=== PATIENT | male | born 1930 | race Caucasian/White ===

== ENCOUNTER → 2016-10-27 | Outpatient (CLI) | payer OTHER ==
[~2016-10-27] MED LIST: B-COTAB18 PO; CHOL100010 PO; FOLI1TAB7 PO; LEVO75TA5 PO; PRLSR20 PO; RAMI10CA PO; SIMV20TA2 PO; TAMS0.4C38 PO
--- NOTE | 2016-10-27 10:30 | DIAGNOSTIC IMAGING REPORT ---
CHEST 2 VIEWS ROUTINE CLINICAL HISTORY: Community-acquired pneumonia. Follow-up study. COMPARISON STUDY: Chest radiograph September 24, 2016. FINDINGS: Lung volumes are at the upper limits of normal. There is no pneumothorax or pleural effusion. There is no evidence of pulmonary edema. No consolidation is identified. Right basilar opacity shown on exam of September 24, 2016 has resolved. There is no evidence of pulmonary edema. IMPRESSION: No acute cardiopulmonary findings. Resolution of right basilar opacity shown on exam of September 24, 2016. Electronically signed by: Baron Thacker M.D. 10/27/2016 10:28 AM Dictated Date/Time: 10/27/2016 10:27 AM
== END | disposition home or self-care (01) ==
LOC: C.RAD 09:59
PROVIDERS: ATTEND Nurse Practitioner
DX: J18.9 Pneumonia, unspecified organism (principal)

== ENCOUNTER → 2017-03-19 | Outpatient (CLI) | payer OTHER ==
[2017-03-19 17:29] LABS: BASO % 0.5 %; BASO ABS # 0.04 K/uL (0-0.2); COMPLETE YES; HEMATOCRIT 41.6 % (42-52); IG% 0.2 %; LYMPH ABS # 2.89 K/uL (1.2-3.4); MEAN CELL VOLUME 92.7 fL (80-100); MEAN CORPUSCULAR HEMOGLOBIN 29.4 pg (25-34); MEAN CORPUSCULAR HGB CONC 31.7 g/dl (32-36); MEAN PLATELET VOLUME 11.3 fL (7.4-10.4); MONO % 9.5 %; NEUT % 53.8 %; PLATELET COUNT 154 K/uL (130-400); RED BLOOD COUNT 4.49 M/uL (4.7-6.1); WHITE BLOOD COUNT 8.25 K/uL (4.8-10.8)
[2017-03-19 17:50] LABS: ALKALINE PHOSPHATASE 66 U/L (45-117); ALT/SGPT 23 U/L (12-78); AST/SGOT 18 U/L (15-37); BLOOD UREA NITROGEN 16 mg/dl (7-18); BUN/CREATININE RATIO 13.6 (10-20); CALCIUM 8.8 mg/dl (8.5-10.1); CARBON DIOXIDE 29 mmol/L (21-32); CHLORIDE 108 mmol/L (98-107); CHOLESTEROL 162 mg/dl (0-200); GLUCOSE 113 mg/dl (70-99); POTASSIUM 4.2 mmol/L (3.5-5.1); SODIUM 145 mmol/L (136-145)
[2017-03-19 17:56] LABS: URINE APPEARANCE CLEAR (CLEAR); URINE BILIRUBIN NEG (NEG); URINE COLOR YELLOW; URINE EPITHELIAL CELL AUTO 20-30 /lpf (0-5); URINE NITRITE NEG (NEG); URINE SPECIFIC GRAVITY 1.024 (1.000-1.030); UROBILINOGEN NEG (NEG); ZZUR CULT IF INDIC CLEAN CATCH NO
[2017-03-19 18:01] LABS: ALB/GLOB RATIO 0.9 (0.9-2); CHOLESTEROL/HDL RATIO 2.8; HDL CHOLESTEROL 57 mg/dl; LDL CHOLESTEROL CALCULATED 80 mg/dl; THYROID STIMULATING HORMONE 0.891 uIu/ml (0.300-4.500); TRIGLYCERIDES 126 mg/dl (0-150); VERY LOW DENSITY LIPOPROT CALC 25 mg/dl
[2017-03-19 18:01] LABS: MANUAL MICROSCOPIC REQUIRED? NO; REVIEW REQ? NO
[2017-03-20 06:43] LABS: ESTIMATED AVERAGE GLUCOSE 128 mg/dl; HA1C FLAG Normal (Normal)
--- NOTE | 2017-03-25 13:31 | CODING QUERY MEDICAL NECESSITY ---
SUPPORTING DIAGNOSIS NEEDED A supporting diagnosis is required for the test/procedure performed on this patient in order for us to be reimbursed by the patient's insurance. Please provide a supporting diagnosis for the following test/procedure listed below next to the test name along with your signature. *If there is no additional diagnosis for this patient that would support the following test/procedure please document that below next to the test/procedure. Test(s)/Procedure(s) that require a supporting diagnosis: * HEMOGLOBIN A1C DIAGNOSIS: Provider Signature: Date: Thank you Mitzy Brannon [facility] [employer] Once completed, please kindly fax back to [phone] For questions please call [phone]
== END | disposition home or self-care (01) ==
LOC: C.LABBFT 17:15
PROVIDERS: ATTEND Internal Medicine
DX: I10 Essential (primary) hypertension (principal); E03.9 Hypothyroidism, unspecified; C61 Malignant neoplasm of prostate; R73.03 Prediabetes; E55.9 Vitamin D deficiency, unspecified; E78.5 Hyperlipidemia, unspecified

== ENCOUNTER → 2017-10-12 | Outpatient (CLI) | payer OTHER ==
[~2017-10-12] MED LIST changes: -FOLI1TAB7 PO; +FOLI1TAB8 PO
[2017-10-12 18:08] LABS: BASO % 0.4 %; BASO ABS # 0.04 K/uL (0-0.2); EOS ABS # 0.09 K/uL (0-0.5); HEMATOCRIT 42.7 % (42-52); HEMOGLOBIN 13.9 g/dL (14.0-18.0); IG# 0.02 K/uL (0.00-0.02); LYMPH % 25.2 %; LYMPH ABS # 2.36 K/uL (1.2-3.4); MEAN CELL VOLUME 94.7 fL (80-100); MEAN CORPUSCULAR HEMOGLOBIN 30.8 pg (25-34); MEAN CORPUSCULAR HGB CONC 32.6 g/dl (32-36); MEAN PLATELET VOLUME 11.7 fL (7.4-10.4); MONO % 7.4 %; MONO ABS # 0.69 K/uL (0.11-0.59); NEUT % 65.8 %; NEUT ABS # 6.15 K/uL (1.4-6.5); PLATELET COUNT 164 K/uL (130-400); RED CELL DISTRIBUTION WIDTH CV 14.3 % (11.5-14.5); RED CELL DISTRIBUTION WIDTH SD 48.9 fL (36.4-46.3); WHITE BLOOD COUNT 9.35 K/uL (4.8-10.8)
[2017-10-12 18:28] LABS: BLOOD UREA NITROGEN 19 mg/dl (7-18); CALCIUM 9.4 mg/dl (8.5-10.1); CARBON DIOXIDE 29 mmol/L (21-32); CREATININE 1.04 mg/dl (0.60-1.40); GLUCOSE 125 mg/dl (70-99); POTASSIUM 4.4 mmol/L (3.5-5.1); SODIUM 143 mmol/L (136-145)
[2017-10-12 18:42] LABS: HEMOGLOBIN A1C 6.1 % (4.5-5.6)
== END | disposition home or self-care (01) ==
LOC: C.LABBFT 14:14
PROVIDERS: ATTEND Internal Medicine
DX: R73.03 Prediabetes (principal); E03.9 Hypothyroidism, unspecified; D64.9 Anemia, unspecified; I10 Essential (primary) hypertension

== ENCOUNTER 2019-11-20 18:03 | Inpatient (IN) ==
[2019-11-20] MEDS ORDERED: FAMOTIDINE 20MG IV PUSH 20 MG/5 ML SYR IV STA (18:18)
[2019-11-20] MEDS ORDERED: ONDANSETRON INJ 2 MG/ML 2 ML VIAL IV STA (18:18)
[2019-11-20] MEDS ORDERED: PANTOprazole 80 MG in DEXTROSE 5% 100 ML IV STA (18:23)
--- NOTE | 2019-11-20 18:28 | Emergency Department Note ---
Entered by Margarita Browne acting as a scribe for Sincere Sanchez MD History of Present Illness General Chief complaint: GI Bleed Time Seen by Provider: 11/20/19 18:05 Source: patient and EMS Mode of arrival: EMS Limitations: altered mental status History of Present Illness Onset (ago): day(s) 2 Location: abdomen Associated symptoms: + other (hematemesis "coffee ground colored", rectal bleeding, melena) The patient is an 88 year old male with a history of prostate cancer, GI bleed, stroke, and NSTEMI who presents to the Emergency Room for a possible GI bleed. EMS states that he has been experiencing hematemesis, rectal bleeding, and melena for the past 2 days. EMS reports coffee ground colored dried blood near the patient's teeth and mouth. They state they are unsure if the patient is on blood thinners and present concern today for a possible GI bleed. Of note, EMS also includes that the patient is confused at baseline and is a DNR. Additionally, he had a low BP when EMS arrived, however this has now resolved. He also was recently on Bactrim for a UTI but has since finished this medication. HPI is limited and is per EMS due to the patient's AMS Home Medications Home Medications Medication Instructions Recorded Confirmed Type cholecalciferol (vitamin D3) 1,000 units PO QAM 07/26/18 11/20/19 History [Vitamin D3] folic acid 1 mg PO QAM 07/26/18 11/20/19 History levothyroxine 75 mcg PO DAILYBB 07/26/18 11/20/19 History simvastatin 20 mg PO HS 07/26/18 11/20/19 History tamsulosin 0.4 mg PO QPM 07/26/18 11/20/19 History polyvinyl alcohol [Artificial 2 drp OPB QID 04/02/19 11/20/19 History Tears (polyvin alc)] acetaminophen 500 mg tablet 500 mg PO Q4H PRN #30 tab 04/21/19 11/20/19 Rx famotidine 20 mg PO HS 11/20/19 11/20/19 History ferrous sulfate 325 mg PO BID17 11/20/19 11/20/19 History food supplemt, lactose-reduced 1 ea PO BIDM 11/20/19 11/20/19 History [Boost] loratadine [Claritin] 10 mg PO HS 11/20/19 11/20/19 History thiamine HCl (vitamin B1) [Vitamin 100 mg PO BIDM 11/20/19 11/20/19 History B-1] Allergies Allergy/AdvReac Type Severity Reaction Status Date / Time Penicillins Allergy Intermediate Hives Verified 11/20/19 18:39 Past Med/Surg History Medical History Anemia (Acute) CAD (coronary artery disease) (Chronic) CHF (congestive heart failure) (Chronic) Cystitis (Chronic) Diverticulitis (Resolved) DVT (deep venous thrombosis) (Chronic ~02/16/14) Encephalopathy (Resolved) Hematuria, gross (Acute) HTN (hypertension) (Chronic) Hyperlipidemia (Acute) Hypertension (Acute) Hypothyroid (Chronic) NSTEMI (non-ST elevated myocardial infarction) (Resolved) Pneumonia (Resolved) Pressure ulcer (Acute) Prostate CA (Resolved) Prostate cancer (Resolved ~10/1983) Rhabdomyolysis (Resolved) SDH (subdural hematoma) TIA (transient ischemic attack) (Resolved) Urinary tract infection (Resolved) Surgical History S/P hernia repair (Resolved) Social History Preferred Language: Irish Communication Ability: Unable Visual Impairment: Diminished Hearing Ability: Hard of Hearing Beliefs That Will Affect Care: None marital status: Current Living Situation: Alone Current Living Situation Comment: PREVIOUSLY LIVED ALONE, WENT TO [facility] current occupational status: retired 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 ROS is limited due to the patient's AMS Physical Exam Vital Signs Vital Signs - 24 hr 11/20/19 18:08 11/20/19 18:11 11/20/19 18:13 Temperature 36.7 C Temperature Source Oral Pulse Rate 71 81 77 Pulse Rate [Finger] Pulse Rate from SpO2 Sensor 73 80 Respiratory Rate 19 16 18 Respiratory Effort / Characteristics Non-Labored Respiratory Depth Normal Blood Pressure 117/72 117/72 Blood Pressure [Left Arm] Blood Pressure Mean 83 87 Blood Pressure Mean [Left Arm] Pulse Oximetry 96 98 99 Oxygen Delivery Method Room Air Sepsis Recent Fever Within 48 Hours No Sepsis New/Unexplained Change in Mental Status No Sepsis Action Taken by Nursing No Action Required 11/20/19 18:20 11/20/19 18:29 11/20/19 18:30 Temperature Temperature Source Pulse Rate 75 75 Pulse Rate [Finger] Pulse Rate from SpO2 Sensor Respiratory Rate 23 23 Respiratory Effort / Characteristics Respiratory Depth Blood Pressure Blood Pressure [Left Arm] Blood Pressure Mean Blood Pressure Mean [Left Arm] Pulse Oximetry 98 Oxygen Delivery Method Room Air Sepsis Recent Fever Within 48 Hours Sepsis New/Unexplained Change in Mental Status Sepsis Action Taken by Nursing 11/20/19 18:40 11/20/19 18:42 11/20/19 18:43 Temperature Temperature Source Pulse Rate 74 70 Pulse Rate [Finger] 72 Pulse Rate from SpO2 Sensor Respiratory Rate 20 16 16 Respiratory Effort / Characteristics Non-Labored Respiratory Depth Normal Blood Pressure 133/63 Blood Pressure [Left Arm] 133/63 Blood Pressure Mean 84 Blood Pressure Mean [Left Arm] 86 Pulse Oximetry 98 Oxygen Delivery Method Room Air Sepsis Recent Fever Within 48 Hours Sepsis New/Unexplained Change in Mental Status Sepsis Action Taken by Nursing 11/20/19 18:50 11/20/19 19:00 11/20/19 19:01 Temperature Temperature Source Pulse Rate 72 71 71 Pulse Rate [Finger] Pulse Rate from SpO2 Sensor Respiratory Rate 15 13 21 Respiratory Effort / Characteristics Respiratory Depth Blood Pressure 114/70 Blood Pressure [Left Arm] Blood Pressure Mean 83 Blood Pressure Mean [Left Arm] Pulse Oximetry Oxygen Delivery Method Sepsis Recent Fever Within 48 Hours Sepsis New/Unexplained Change in Mental Status Sepsis Action Taken by Nursing 11/20/19 19:10 11/20/19 19:20 11/20/19 19:30 Temperature Temperature Source Pulse Rate 67 70 67 Pulse Rate [Finger] Pulse Rate from SpO2 Sensor Respiratory Rate 12 18 23 Respiratory Effort / Characteristics Respiratory Depth Blood Pressure 112/61 Blood Pressure [Left Arm] Blood Pressure Mean 77 Blood Pressure Mean [Left Arm] Pulse Oximetry Oxygen Delivery Method Sepsis Recent Fever Within 48 Hours Sepsis New/Unexplained Change in Mental Status Sepsis Action Taken by Nursing 11/20/19 19:31 11/20/19 19:40 11/20/19 19:50 Temperature Temperature Source Pulse Rate 62 67 65 Pulse Rate [Finger] Pulse Rate from SpO2 Sensor 65 Respiratory Rate 17 17 18 Respiratory Effort / Characteristics Respiratory Depth Blood Pressure Blood Pressure [Left Arm] Blood Pressure Mean Blood Pressure Mean [Left Arm] Pulse Oximetry 99 Oxygen Delivery Method Sepsis Recent Fever Within 48 Hours Sepsis New/Unexplained Change in Mental Status Sepsis Action Taken by Nursing GENERAL: Patient is in no acute distress. HEENT: No acute trauma, normocephalic atraumatic, mucous membranes dry, no nasal congestion, no scleral icterus. Coffee ground material dried on chin. NECK: No stridor, no adenopathy, no meningismus, trachea is midline. LUNGS: Clear to auscultation bilaterally, no wheeze, no rhonchi, breath sounds equal. HEART: Irregular rhythm, no murmurs, normal rate. ABDOMEN: Soft, nontender, bowel sounds positive, no hernias, no peritonitis. EXTREMITIES: No cyanosis or edema, full range of motion of all the joints without pain or difficulty, no signs for acute trauma. NEUROLOGIC: Awake, slightly drowsy, no acute motor or sensory deficits, no focal weakness. SKIN: Seems pale, no jaundice, no diaphoresis. Petechial rash on lower extremities bilaterally. Some petechiae on dorsum of hands and a blotchy non- blanching rash on both palms. RECTAL: Dark stool, heme positive. Course Course 1809: Past medical records reviewed. The patient was evaluated in room B04B. A complete history and physical exam was performed. 1928: I spoke to Dr. Garcia, [facility] Hospitalist who will further evaluate the patient. 1942: I checked on the patient and there is no family present in the room yet. Administered Medications Pantoprazole Sodium 40 mg/ (Dextrose) 100 mls @ 20 mls/hr IV Q5H JAKE Stop: 11/20/19 23:59 Last Admin: 11/20/19 19:41 Dose: 20 mls/hr Documented by: [id number] Sodium Chloride (Nss 1000ml) 1,000 mls @ 999 mls/hr IV .Q1H1M JAKE Stop: 11/20/19 20:45 Last Admin: 11/20/19 19:45 Dose: Not Given Documented by: [id number] Discontinued Medications Sodium Chloride (Nss 1000ml) 1,000 mls @ 100 mls/hr IV .Q10H JAKE Stop: 11/21/19 04:29 Last Infusion: 11/20/19 19:45 Dose: 0 mls/hr Documented by: [id number] Admin: 11/20/19 18:32 Dose: 100 mls/hr Documented by: [id number] Famotidine (Pepcid 20mg Iv Push) 20 mg in 5 mls @ 2.5 mls/min IV NOW STA Stop: 11/20/19 18:19 Last Admin: 11/20/19 18:36 Dose: 2.5 mls/min Documented by: [id number] Pantoprazole Sodium 80 mg/ (Dextrose) 120 mls @ 480 mls/hr IV NOW STA Stop: 11/20/19 18:37 Last Infusion: 11/20/19 19:41 Dose: 0 mls/hr Documented by: [id number] Admin: 11/20/19 19:12 Dose: 480 mls/hr Documented by: [id number] Ondansetron HCl (Zofran) 4 mg IV ONE STA Stop: 11/20/19 18:19 Last Admin: 11/20/19 18:36 Dose: 4 mg Documented by: [id number] Medical Decision Making Differential Diagnosis Differential diagnosis includes but is not limited to upper GI bleed, ulcer, lower GI bleed, anemia, dehydration, electrolyte imbalance, renal or liver failure, coagulopathy, low platelet count. Medical Records Attestation: I reviewed the patient's medical records. Home Medications Current Medication List: was personally reviewed by me Laboratory Data Attestation: I reviewed the patient's lab results. Result diagrams: 11/20/19 18:22 11/20/19 18:22 Lab Results 11/20/19 11/20/19 11/20/19 Range/Units 18:22 18:22 18:22 WBC 12.91 H (4.8-10.8) K/uL RBC 3.99 L (4.7-6.1) M/uL Hgb 11.5 L (14.0-18.0) g/dL Hct 36.3 L (42-52) % MCV 91.0 (80-100) fL MCH 28.8 (25-34) pg MCHC 31.7 L (32-36) g/dL RDW Std Deviation 53.6 H (36.4-46.3) fL RDW Coeff of Maite 16.3 H (11.5-14.5) % Plt Count 176 (130-400) K/uL MPV 11.2 H (7.4-10.4) fL Immature Gran % (Auto) 0.6 % Neut % (Auto) 82.6 % Lymph % (Auto) 10.6 % [place] % (Auto) 6.1 % Eos % (Auto) 0.0 % Baso % (Auto) 0.1 % Immature Gran # (Auto) 0.08 H (0.00-0.02) K/uL Neut # (Auto) 10.66 H (1.4-6.5) K/uL Lymph # (Auto) 1.37 (1.2-3.4) K/uL [place] # (Auto) 0.79 H (0.11-0.59) K/uL Eos # (Auto) 0.00 (0-0.5) K/uL Baso # (Auto) 0.01 (0-0.2) K/uL PT 14.0 H (9.0-12.0) Seconds INR 1.4 H (0.9-1.1) APTT 24.0 (21.0-31.0) Seconds PTT Ratio 0.9 Sodium (136-145) mmol/L Potassium (3.5-5.1) mmol/L Chloride (98-107) mmol/L Carbon Dioxide (21-32) mmol/L Anion Gap (3-11) BUN (7-18) mg/dl Creatinine (0.6-1.4) mg/dl Est Cr Clr Drug Dosing Est GFR ( Amer) Est GFR (Non-Af Amer) BUN/Creatinine Ratio (10-20) Glucose (70-99) mg/dl Calcium (8.5-10.1) mg/dl Magnesium (1.8-2.4) mg/dl Total Bilirubin (0.2-1) mg/dl AST (15-37) U/L ALT (12-78) U/L Alkaline Phosphatase (45-117) U/L Troponin I (0-0.045) ng/ml Total Protein (6.4-8.2) gm/dl Albumin (3.4-5.0) gm/dl Globulin (2.5-4.0) gm/dl Albumin/Globulin Ratio (0.9-2) Lipase (73-393) U/L Specimen Hemolysis Blood Type B Positive Antibody Screen NEGATIVE 11/20/19 Range/Units 18:22 WBC (4.8-10.8) K/uL RBC (4.7-6.1) M/uL Hgb (14.0-18.0) g/dL Hct (42-52) % MCV (80-100) fL MCH (25-34) pg MCHC (32-36) g/dL RDW Std Deviation (36.4-46.3) fL RDW Coeff of Maite (11.5-14.5) % Plt Count (130-400) K/uL MPV (7.4-10.4) fL Immature Gran % (Auto) % Neut % (Auto) % Lymph % (Auto) % [place] % (Auto) % Eos % (Auto) % Baso % (Auto) % Immature Gran # (Auto) (0.00-0.02) K/uL Neut # (Auto) (1.4-6.5) K/uL Lymph # (Auto) (1.2-3.4) K/uL [place] # (Auto) (0.11-0.59) K/uL Eos # (Auto) (0-0.5) K/uL Baso # (Auto) (0-0.2) K/uL PT (9.0-12.0) Seconds INR (0.9-1.1) APTT (21.0-31.0) Seconds PTT Ratio Sodium 137 (136-145) mmol/L Potassium 3.8 (3.5-5.1) mmol/L Chloride 102 (98-107) mmol/L Carbon Dioxide 27 (21-32) mmol/L Anion Gap 8.0 (3-11) BUN 32 H (7-18) mg/dl Creatinine 2.11 H (0.6-1.4) mg/dl Est Cr Clr Drug Dosing Not Reportable Est GFR ( Amer) 31.7 Est GFR (Non-Af Amer) 27.3 BUN/Creatinine Ratio 15.1 (10-20) Glucose 143 H (70-99) mg/dl Calcium 8.6 (8.5-10.1) mg/dl Magnesium 1.8 (1.8-2.4) mg/dl Total Bilirubin 0.8 (0.2-1) mg/dl AST 24 (15-37) U/L ALT 20 (12-78) U/L Alkaline Phosphatase 135 H (45-117) U/L Troponin I < 0.015 (0-0.045) ng/ml Total Protein 8.3 H (6.4-8.2) gm/dl Albumin 1.9 L (3.4-5.0) gm/dl Globulin 6.4 H (2.5-4.0) gm/dl Albumin/Globulin Ratio 0.3 L (0.9-2) Lipase 41 L (73-393) U/L Specimen Hemolysis Blood Type Antibody Screen Imaging Data Radiologist's Impression: Radiology results as stated below per my review and the radiologist's interpretation: SINGLE VIEW CHEST CLINICAL HISTORY: Generalized weakness. FINDINGS: 2 AP, portable, upright chest radiographs are compared to performed earlier the same day 08/03/2018 and correlated with chest CT dated 07/26/2018. The examination is degraded by portable technique and patient rotation. The heart is mildly enlarged and there is atherosclerotic calcification of the thoracic aorta. The pulmonary vasculature is noncongested. There is a small right pleural effusion with associated atelectasis. The left lung appears clear. No pneumothorax is seen. The skeletal structures are osteopenic. The bony thorax is grossly intact. Advanced arthritic change is noted in the shoulders. There are healed left-sided rib fractures. IMPRESSION: 1. Mild cardiac enlargement without radiographic evidence of congestive failure. 2. Trace right pleural effusion. Electronically signed by: Sincere Jean M.D. 11/20/2019 6:58 PM ECG Data Attestation: I personally reviewed and interpreted this ECG as follows: Indication: + other (GI bleed) Rate (beats per minute): 71 Rhythm: + sinus rhythm ECG ST segments: no ST elevation ECG Findings: + PACs and + Other (QT-c is 436) Blood Pressure Blood Pressure Findings: Normal blood pressure Blood Pressure Disposition: further management by hospitalist [facility] Narrative There is a mild leukocytosis, this certainly could be consistent with infection or just the stress of his situation. There was an anemia present with a hemoglobin of 11.5, however, this value is higher than some recent baseline testing. There was a normal platelet count. INR was 1.4, mildly elevated. There was evidence for acute kidney injury with a creatinine of 2.11. Alk phos somewhat elevated, the albumin was low. No evidence for pancreatitis. Chest film does not show pneumonia or CHF. EKG shows a sinus rhythm, no acute ischemic change. Cardiac enzyme testing x1 is not consistent with acute cardiac injury. On my exam, the patient appeared quite dehydrated. He did have a dark, heme positive stool. The patient was reportedly hypotensive at the senior care, however, here, his blood pressure is adequate. The patient was given IV saline, 1 L. He was given a bolus of Protonix and placed on a Protonix drip. He received IV Zofran and IV Pepcid. Patient is not in need of any emergent transfusion in the ED. He does need hospitalization though. His hemoglobin will need to be followed. He may require an endoscopy. I did speak to the patient and case management. The on- call hospitalist has been consulted. Patient has done well with his IV fluid hydration. His blood pressure is adequate, his pulse is adequate. Continuous Cardiac Monitoring: An order was placed for continuous cardiac monitoring. The monitor shows a rate of 76 with sinus rhythm and PACs. Impression & Plan Upper gastrointestinal bleed, Anemia, Dehydration, Hematemesis, MAITE (acute kidney injury), Heme positive stool Discharge Plan Visit Data Chief Complaint: GI Bleed ED Provider: Sincere Sanchez Discharge Problem: Upper gastrointestinal bleed, Anemia, Dehydration, Hematemesis, MAITE (acute kidney injury), Heme positive stool Patient Disposition: Being Evaluated by Hospitalist Forms Stand Alone Forms: My [facility] Prescriptions Prescriptions: No Action acetaminophen [Acetaminophen Extra Strength] 500 mg tablet 500 mg PO Q4H PRN (Reason: Pain) Qty: 30 RF: 0 levothyroxine 75 mcg tablet 75 mcg PO DAILYBB RF: 0 tamsulosin 0.4 mg capsule 0.4 mg PO QPM RF: 0 simvastatin 20 mg tablet 20 mg PO HS RF: 0 folic acid 1 mg Tablet 1 mg PO QAM RF: 0 cholecalciferol (vitamin D3) [Vitamin D3] 1,000 unit Tablet 1,000 units PO QAM RF: 0 famotidine 20 mg Tablet 20 mg PO HS RF: 0 loratadine [Claritin] 10 mg Tablet 10 mg PO HS RF: 0 Boost 0.04 gram- 1 kcal/mL Liquid 1 ea PO BIDM RF: 0 thiamine HCl (vitamin B1) [Vitamin B-1] 100 mg tablet 100 mg PO BIDM RF: 0 ferrous sulfate 325 mg (65 mg iron) tablet,delayed release (DR/EC) 325 mg PO BID17 RF: 0 polyvinyl alcohol [Artificial Tears (polyvin alc)] 1.4 % Drops 2 drp OPB QID RF: 0 Referrals Referrals: Laine Corado Worley [Primary Care Provider] - Discharge Problem: Anemia Qualifiers: Anemia type: unspecified type Qualified Code(s): D64.9 - Anemia, unspecified Hematemesis Qualifiers: Nausea presence: unspecified Qualified Code(s): K92.0 - Hematemesis The scribe's documentation has been prepared under my direction and personally reviewed by me in its entirety. I confirm that the note above accurately reflects all work, treatment, procedures, and medical decision making performed by me.
[2019-11-20] MEDS ORDERED: SODIUM CHLORIDE 0.9% 1000ML 1,000 ML IV SCH ×2 (18:30→19:45)
[2019-11-20 18:38] LABS: Basophils # (auto) 0.01 K/uL (0-0.2); Basophils % (auto) 0.1 %; Hematocrit (blood only) 36.3 % (42-52); Hemoglobin 11.5 g/dL (14.0-18.0); Immature Granulocytes # (auto) 0.08 K/uL (0.00-0.02); Immature Granulocytes % (auto) 0.6 %; Lymphocytes # (auto) 1.37 K/uL (1.2-3.4); Lymphocytes % (auto) 10.6 %; Mean Corpuscular Hemoglobin 28.8 pg (25-34); Mean Corpuscular Hgb Conc 31.7 g/dL (32-36); Mean Platelet Volume 11.2 fL (7.4-10.4); Monocytes # (auto) 0.79 K/uL (0.11-0.59); Monocytes % (auto) 6.1 %; Neutrophils # (auto) 10.66 K/uL (1.4-6.5); Neutrophils % (auto) 82.6 %; Platelet Count 176 K/uL (130-400); RDW Coefficient of Variation 16.3 % (11.5-14.5); RDW Standard Deviation 53.6 fL (36.4-46.3); Red Blood Count 3.99 M/uL (4.7-6.1); White Blood Count 12.91 K/uL (4.8-10.8)
[2019-11-20 18:51] LABS: INR 1.4 (0.9-1.1); Partial Thromboplastin Ratio 0.9
--- NOTE | 2019-11-20 19:00 | XRay Report ---
SINGLE VIEW CHEST CLINICAL HISTORY: Generalized weakness. FINDINGS: 2 AP, portable, upright chest radiographs are compared to performed earlier the same day and correlated with chest CT dated 07/26/2018. The examination is degraded by portable techn ique and patient rotation. The heart is mildly enlarged and there is atherosclerotic calcification o f the thoracic aorta. The pulmonary vasculature is noncongested. There is a small right pleural effus ion with associated atelectasis. The left lung appears clear. No pneumothorax is seen. The skeletal s tructures are osteopenic. The bony thorax is grossly intact. Advanced arthritic change is noted in th e shoulders. There are healed left-sided rib fractures. IMPRESSION: 1. Mild cardiac enlargement without radiographic evidence of congestive failure. 2. Trace right pleural effusion. Electronically signed by: Sincere Jean M.D. 11/20/2019 6:58 PM
[2019-11-20 19:10] LABS: Alanine Aminotransferase 20 U/L (12-78); Albumin Globulin Ratio 0.3 (0.9-2); Albumin Level 1.9 gm/dl (3.4-5.0); Alkaline Phosphatase 135 U/L (45-117); Aspartate Aminotransferase 24 U/L (15-37); BUN Creatinine Ratio 15.1 (10-20); Bilirubin,Total 0.8 mg/dl (0.2-1); Blood Urea Nitrogen 32 mg/dl (7-18); Calcium 8.6 mg/dl (8.5-10.1); Carbon Dioxide 27 mmol/L (21-32); Chloride 102 mmol/L (98-107); Est GFR (African American) 31.7; Est GFR (Non-African American) 27.3; Globulin 6.4 gm/dl (2.5-4.0); Glucose 143 mg/dl (70-99); Lipase 41 U/L (73-393); Magnesium 1.8 mg/dl (1.8-2.4); Potassium 3.8 mmol/L (3.5-5.1); Sodium 137 mmol/L (136-145); Total Protein 8.3 gm/dl (6.4-8.2); Troponin I < 0.015 ng/ml (0-0.045)
[2019-11-20] MEDS: PANTOprazole 40 MG in DEXTROSE 5% 100 ML IV SCH (19:41)
--- NOTE | 2019-11-20 20:19 | Emergency Department Note ---
ED Visit Note I was contacted by case management, the patient's primary hospitalist service should now be the [facility] service. The [facility] physician, Dr. Hughes was contacted. He did accept the patient on his service. . : Anemia Qualifiers: Anemia type: unspecified type Qualified Code(s): D64.9 - Anemia, unspecified Hematemesis Qualifiers: Nausea presence: unspecified Qualified Code(s): K92.0 - Hematemesis
--- NOTE | 2019-11-20 21:04 | History & Physical Report ---
Date of Service November 20, 2019 Assessment & Plan (1) GI bleed: Possible UGI (history of stomach NHL/ulcers as per daughter)/LGI (possible ischemic colitis rule out C. difficile) source ARF secondary to illness Recent UTI status post Bactrim Rx Encephalopathy secondary to illness Vasculitic rash ? Secondary to Bactrim chronic diastolic heart failure (EF 55 to 60%, TTE 2018), patient clinically dry hx CAD/CVA as per records hypertension, stable BPH, prostate cancer status post radiation past history DVT as per records chronic anemia, hemoglobin better than baseline likely secondary to hemoconcentration new diagnosis of DM 2, outpatient hemoglobin A1c of 6.11 October 2019 past tobacco abuse Medical telemetry Bowel rest IV PPI for UGI bleed Trend H&H, transfuse PRBC if hemoglobin less than 8 and or for symptomatic anemia GI consult RE U GIB Cefepime, Flagyl for possible ischemic colitis Check stool C. difficile Surgery consult Re: Ischemic colitis Baseline UA, monitor creatinine response to IVF Add Bactrim to ADR list for now Contact patient's [facility] programs assistant (Dr. Pate) in a.m. regarding vasculitic rash ISS BG goal [id number] DVT phylaxis. SCDs RE GI bleed DNR as per daughter/POA, . Barrett Gonzalez. She requests updates for providers [facility] [id number]. Text document was generated using [employer] voice recognition software. It may contain grammatical or spelling errors. Kindly contact undersigned for clarification of any documentation item in [employer] ion. History of Present Illness Chief Complaint: GI bleed Primary Care Provider: [facility] History obtained from family and records. Unable to obtain history from patient secondary to obtunded state. 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 Recent confinement August 2018 for fall, rhabdomyolysis. Patient transitioned to [facility]. 2 weeks ago patient started on Bactrim and Macrobid for polymicrobial UTI (Proteus sensitive, Aerococcus resistant) after fever at the skilled nursing. 2 days history of hematemesis, melanotic, rectal bleeding symptoms. Decreased mentation as per report. No reported complaints of abdominal pain. EMS brought patient to ER. IV PPI started for UGI bleed. Medical History as above 2014 colonoscopy showed colonic polyps, diverticulosis, internal hemorrhoids Surgical History : Urologic procedures Family History : Heart disease, stroke Personal/Social history : Past tobacco abuse, no recent EtOH intake, skilled nursing resident, retired salesman Allergies Allergy/AdvReac Type Severity Reaction Status Date / Time Penicillins Allergy Intermediate Hives Verified 11/20/19 18:39 sulfamethoxazole Allergy Mild poss Verified 11/21/19 04:02 [From Bactrim] vasculitic rash trimethoprim [From Bactrim] Allergy Mild poss Verified 11/21/19 04:02 vasculitic rash Home Medications Home Medications Medication Instructions Recorded Confirmed Type cholecalciferol (vitamin D3) 1,000 units PO QAM 07/26/18 11/20/19 History [Vitamin D3] folic acid 1 mg PO QAM 07/26/18 11/20/19 History levothyroxine 75 mcg PO DAILYBB 07/26/18 11/20/19 History simvastatin 20 mg PO HS 07/26/18 11/20/19 History tamsulosin 0.4 mg PO QPM 07/26/18 11/20/19 History polyvinyl alcohol [Artificial 2 drp OPB QID 04/02/19 11/20/19 History Tears (polyvin alc)] acetaminophen 500 mg tablet 500 mg PO Q4H PRN #30 tab 04/21/19 11/20/19 Rx famotidine 20 mg PO HS 11/20/19 11/20/19 History ferrous sulfate 325 mg PO BID17 11/20/19 11/20/19 History food supplemt, lactose-reduced 1 ea PO BIDM 11/20/19 11/20/19 History [Boost] loratadine [Claritin] 10 mg PO HS 11/20/19 11/20/19 History thiamine HCl (vitamin B1) [Vitamin 100 mg PO BIDM 11/20/19 11/20/19 History B-1] Past Med/Surg History Medical History Anemia (Acute) CAD (coronary artery disease) (Chronic) CHF (congestive heart failure) (Chronic) Cystitis (Chronic) Diverticulitis (Resolved) DVT (deep venous thrombosis) (Chronic ~02/16/14) Encephalopathy (Resolved) Hematuria, gross (Acute) HTN (hypertension) (Chronic) Hyperlipidemia (Acute) Hypertension (Acute) Hypothyroid (Chronic) NSTEMI (non-ST elevated myocardial infarction) (Resolved) Pneumonia (Resolved) Pressure ulcer (Acute) Prostate CA (Resolved) Prostate cancer (Resolved ~10/1983) Rhabdomyolysis (Resolved) SDH (subdural hematoma) TIA (transient ischemic attack) (Resolved) Urinary tract infection (Resolved) Surgical History S/P hernia repair (Resolved) Social History Preferred Language: Mongolian Communication Ability: Impaired Visual Impairment: Diminished Hearing Ability: Hard of Hearing Beliefs That Will Affect Care: None marital status: Current Living Situation: [facility] Current Living Situation Comment: PREVIOUSLY LIVED ALONE, [facility] current occupational status: retired current occupation: Formerly in sales for [employer] Feels Safe at Home: Declines to Answer Smoking Status: Unknown if ever smoked Hx Alcohol Use: No Hx Substance Use: No Review of Systems Review of Systems: Could not be reliably obtained Physical Exam Physical Exam: GENERAL: Obtunded, nonverbal, no respiratory distress SKIN: Pallor , warm HEENT: Pale palpebral conjunctivae, no ptosis, dry buccal mucosa NECK : Supple, no tenderness CHEST : Decreased breath sounds , no tenderness HEART : RRR, no obvious murmurs ABDOMEN: Some distention, nonspecific tenderness on light palpation EXTREMITIES : Petechial rash both lower extremities and hands, no LE swelling/tenderness, no other conspicuous deformities noted NEUROLOGIC : Obtunded, nonverbal, gait and stance not assessed Results & Data Vital Signs (Past 12 Hours) Vital Signs Temp Pulse Pulse Resp BP BP Pulse Ox 11/20/19 19:50 65 18 99 11/20/19 19:40 67 17 11/20/19 19:31 62 17 11/20/19 19:30 67 23 112/61 11/20/19 19:20 70 18 11/20/19 19:10 67 12 11/20/19 19:01 71 21 11/20/19 19:00 71 13 114/70 11/20/19 18:50 72 15 11/20/19 18:43 72 16 133/63 98 11/20/19 18:42 70 16 133/63 11/20/19 18:40 74 20 11/20/19 18:30 75 23 11/20/19 18:29 98 11/20/19 18:20 75 23 11/20/19 18:13 77 18 99 11/20/19 18:11 36.7 C 81 16 117/72 98 11/20/19 18:08 71 19 117/72 96 Laboratory Results Laboratory Results WBC 12.91 K/uL (4.8-10.8) H 11/20/19 18:22 RBC 3.99 M/uL (4.7-6.1) L 11/20/19 18:22 Hgb 11.5 g/dL (14.0-18.0) L 11/20/19 18:22 Hct 36.3 % (42-52) L 11/20/19 18:22 MCV 91.0 fL (80-100) 11/20/19 18:22 MCH 28.8 pg (25-34) 11/20/19 18:22 MCHC 31.7 g/dL (32-36) L 11/20/19 18:22 RDW Std Deviation 53.6 fL (36.4-46.3) H 11/20/19 18:22 RDW Coeff of Maite 16.3 % (11.5-14.5) H 11/20/19 18:22 Plt Count 176 K/uL (130-400) 11/20/19 18:22 MPV 11.2 fL (7.4-10.4) H 11/20/19 18:22 Immature Gran % (Auto) 0.6 % 11/20/19 18:22 Neut % (Auto) 82.6 % 11/20/19 18:22 Lymph % (Auto) 10.6 % 11/20/19 18:22 [place] % (Auto) 6.1 % 11/20/19 18:22 Eos % (Auto) 0.0 % 11/20/19 18:22 Baso % (Auto) 0.1 % 11/20/19 18:22 Immature Gran # (Auto) 0.08 K/uL (0.00-0.02) H 11/20/19 18:22 Neut # (Auto) 10.66 K/uL (1.4-6.5) H 11/20/19 18:22 Lymph # (Auto) 1.37 K/uL (1.2-3.4) 11/20/19 18:22 [place]on # (Auto) 0.79 K/uL (0.11-0.59) H 11/20/19 18:22 Eos # (Auto) 0.00 K/uL (0-0.5) 11/20/19 18: Baso # (Auto) 0.01 K/uL (0-0.2) 11/20/19 18:22 PT 14.0 Seconds (9.0-12.0) H 11/20/19 18:22 INR 1.4 (0.9-1.1) H 11/20/19 18:22 APTT 24.0 Seconds (21.0-31.0) 11/20/19 18: PTT Ratio 0.9 11/20/19 18:22 Sodium 137 mmol/L (136-145) 11/20/19 18:22 Potassium 3.8 mmol/L (3.5-5.1) 11/20/19 18:22 Chloride 102 mmol/L (98-107) 11/20/19 18:22 Carbon Dioxide 27 mmol/L (21-32) 11/20/19 18:22 Anion Gap 8.0 (3-11) 11/20/19 18:22 BUN 32 mg/dl (7-18) H 11/20/19 18: Creatinine 2.11 mg/dl (0.6-1.4) H 11/20/19 18:22 Est Cr Clr Drug Dosing Not Reportable 11/20/19 18:22 Est GFR ( Amer) 31.7 11/20/19 18:22 Est GFR (Non-Af Amer) 27.3 11/20/19 18:22 BUN/Creatinine Ratio 15.1 (10-20) 11/20/19 18: Glucose 143 mg/dl (70-99) H 11/20/19 18:22 Calcium 8.6 mg/dl (8.5-10.1) 11/20/19 18:22 Magnesium 1.8 mg/dl (1.8-2.4) 11/20/19 18: Total Bilirubin 0.8 mg/dl (0.2-1) 11/20/19 18: AST 24 U/L (15-37) 11/20/19 18: ALT 20 U/L (12-78) 11/20/19 18: Alkaline Phosphatase 135 U/L (45-117) H 11/20/19: Troponin I < 0.015 ng/ml (0-0.045) 11/20/19 18: Total Protein 8.3 gm/dl (6.4-8.2) H 11/20/19: Albumin 1.9 gm/dl (3.4-5.0) L 11/20/19: Globulin 6.4 gm/dl (2.5-4.0) H 11/20/19: Albumin/Globulin Ratio 0.3 (0.9-2) L 11/20/19: Lipase 41 U/L (73-393) L 11/20/19: TSH 6.750 uIu/ml (0.300-4.500) H 11/20/19 18: Specimen Hemolysis 11/20/19: Blood Type B Positive 11/20/19: Antibody Screen NEGATIVE 11/20/19: Diagnostic Findings CT head: 1. There is no hemorrhage, mass effect, or evidence of acute territorial ischemia by CT criteria. 2. Remote right MCA territory infarct. CT abdomen pelvis: 1. Suboptimal examination without oral and IV contrast. The examination is also compromised by streak and motion artifact. 2. There is wall thickening and edema seen involving the colon, greatest involving the left colon with surrounding inflammation. The appearance is consistent with a nonspecific colitis. 3. There are numerous foci of portal venous gas identified. There is also venous gas within perigastric vessels. This can be seen in the setting of bowel ischemia. Clinical correlation will be essential and surgical consultation is advised. 4. No pneumatosis intestinalis or intraperitoneal free air is identified. 5. There are calcified gallstones. Pericholecystic inflammation is suggested. Correlate clinically for evidence of acute cholecystitis. Ultrasound could be co nsidered for further assessment. 6. Question cystitis. Correlation with urinalysis will be required. 7. Cardiomegaly. 8. There is diverticulosis of the small bowel and colon without clear CT eviden ce of acute diverticulitis. Chest x-ray : 1. Mild cardiac enlargement without radiographic evidence of congestive failure. 2. Trace right pleural effusion. EKG as per my interpretation : Rate 70, NSR, normal axis, T wave flattening septal and lateral leads, CO WP
[2019-11-20 21:14] LABS: T4 Free Thyroxine 1.24 ng/dl (0.8-1.6)
[2019-11-20] MEDS: NORMOSOL-R 1,000 ML IV SCH (21:37)
[2019-11-20] MEDS ORDERED: ACETAMINOPHEN 325 MG TAB PO PRN (22:22)
[2019-11-20] MEDS ORDERED: DEXTROSE 50% 50 ML SYRINGE IV PRN (22:22)
[2019-11-20] MEDS ORDERED: GLUCAGON FOR INJ 1 MG VIAL SQ PRN (22:22)
[2019-11-20] MEDS ORDERED: PROMETHAZINE HCL 12.5 MG in SODIUM CHLORIDE 0.9% 50 ML IV PRN (22:22)
[2019-11-20] MEDS ORDERED: CARBOHYDRATES FOR HYPOGLYCEMIA PO PRN (22:22)
[2019-11-20] MEDS ORDERED: TRAMADOL HCL 50 MG TABLET PO PRN (22:22)
[2019-11-20] MEDS ORDERED: GLUCOSE 40% GEL 15 GM TUBE PO PRN (22:22)
[2019-11-20] MEDS ORDERED: GLUCOSE 10 TABS/TUBE PO PRN (22:22)
--- NOTE | 2019-11-20 22:29 | CT Scan Report ---
CT SCAN OF THE ABDOMEN AND PELVIS WITHOUT IV CONTRAST CLINICAL HISTORY: Generalized abdominal pain. COMPARISON STUDY: Abdominal CT dated 07/26/2018. TECHNIQUE: CT scan of the abdomen and pelvis is performed from the lung bases to the proximal femora. Images are reviewed in the axial, sagittal, and coronal planes. IV contrast was not administered for this examination as per the referring clinician. Note that the examination was performed in signific antly suboptimal fashion without oral and IV contrast. The examination is also degraded by streak art ifact from the arms which could not be elevated above the abdomen and motion artifact. A dose lowerin g technique was utilized adhering to the principles of ALARA. FINDINGS: Lung bases: The heart is enlarged and there is trace pericardial effusion. The coronary arteries are densely calcified. Calcification of the interventricular septum suggests previous ischemia. There is a small hiatal hernia. There is bibasilar scarring/atelectasis. No airspace consolidation or pleural effusion is identified. Liver: Evaluation of the liver is compromised by streak artifact. The unenhanced liver is normal in s ize, contour, and attenuation. There is no intrahepatic biliary ductal dilatation. There are numerous foci of portal venous gas. Gallbladder: There are layering calcified gallstones. Question pericholecystic inflammation. Spleen: Normal in size and attenuation. Pancreas: The unenhanced pancreas is atrophic and grossly unremarkable. Adrenal glands: Unremarkable. Kidneys: The kidneys are not well assessed due to streak artifact. The unenhanced kidneys demonstrate cortical atrophy and are without hydronephrosis. There are no renal calculi identified. Bilateral re nal cysts measure up to 4.6 cm. Additional subcentimeter cortical hypodensities also likely represent cysts but are too small for definitive characterization. Abdominal vasculature: There is advanced atherosclerotic calcification and ectasia of the abdominal a ryan. The abdominal aorta measures up to 2.7 cm in diameter. Bowel: There is no bowel obstruction. There is moderate colonic diverticulosis without CT evidence of acute diverticulitis. There is mild wall thickening seen throughout the left colon with associated p ericolonic inflammation. The appearance is consistent with a nonspecific colitis. No pneumatosis inte stinalis is identified. There are numerous foci of portal venous gas. Gas is also present within grace gastric vessels. There is diverticulosis of the distal small bowel identified in the right lower quad rant. The appendix is not identified. Peritoneum: There is no intraperitoneal free air or abdominal ascites. Lymphadenopathy: None. Pelvic viscera: The prostate gland is diminutive and heterogeneous. There is median lobe hypertrophy. The bladder wall is thickened and trabeculated indicating chronic outlet obstruction. A small uracha l diverticulum is noted at the bladder dome. Pericystic inflammation is observed. Skeletal structures: The skeletal structures are osteopenic. There is moderate to advanced lumbosacra l spondylosis. Bilateral pars defects are noted at L5. No lytic or blastic lesions are seen. There ar e healed left-sided rib fractures. IMPRESSION: 1. Suboptimal examination without oral and IV contrast. The examination is also compromised by streak and motion artifact. 2. There is wall thickening and edema seen involving the colon, greatest involving the left colon wit h surrounding inflammation. The appearance is consistent with a nonspecific colitis. 3. There are numerous foci of portal venous gas identified. There is also venous gas within perigastr ic vessels. This can be seen in the setting of bowel ischemia. Clinical correlation will be essential and surgical consultation is advised. 4. No pneumatosis intestinalis or intraperitoneal free air is identified. 5. There are calcified gallstones. Pericholecystic inflammation is suggested. Correlate clinically fo r evidence of acute cholecystitis. Ultrasound could be considered for further assessment. 6. Question cystitis. Correlation with urinalysis will be required. 7. Cardiomegaly. 8. There is diverticulosis of the small bowel and colon without clear CT evidence of acute diverticul itis. 9. Additional findings as above. ACT 112: Negative or not required by law. Electronically signed by: Sincere Jean M.D. 11/20/2019 10:27 PM
--- NOTE | 2019-11-20 22:32 | CT Scan Report ---
CT SCAN OF THE BRAIN WITHOUT IV CONTRAST CLINICAL HISTORY: Generalized weakness. COMPARISON STUDY: CT of the brain dated 04/02/2019. TECHNIQUE: Unenhanced axial CT scan of the brain is performed from the vertex to the skull base. A do se lowering technique was utilized adhering to the principles of ALARA. CT DOSE: 1107.53 mGy.cm FINDINGS: Brain parenchyma: Right MCA territory encephalomalacia is unchanged from previous and consistent with a remote infarct. There are age-related involutional changes noting moderate subcortical and perive ntricular microangiopathic change. There is no hemorrhage, mass effect, or evidence of acute territor ial ischemia by CT criteria. Campos-white matter differentiation is preserved. No extra-axial fluid col lection is seen. Ventricles, sulci, cisterns: Prominent secondary to involutional change. Intracranial vasculature: There is atherosclerotic calcification of the cavernous carotid and vertebr al arteries. Calvarium: Unremarkable. Sinuses and mastoids: The visualized paranasal sinuses are clear. There is a trace right mastoid effu alisa. The left mastoid air cells are well pneumatized. Orbits: The bony orbits are grossly intact. IMPRESSION: 1. There is no hemorrhage, mass effect, or evidence of acute territorial ischemia by CT criteria. 2. Remote right MCA territory infarct. ACT 112: Negative or not required by law. Electronically signed by: Sincere Jean M.D. 11/20/2019 10:30 PM
[2019-11-20] MEDS ORDERED: CEFEPIME 2,000 MG in SYRINGE 7.5 ML IV ONE (23:00)
[2019-11-20 23:16] LABS: Hematocrit (blood only) 29.9 % (42-52); Hemoglobin 9.7 g/dL (14.0-18.0)
[2019-11-20] MEDS: INSULIN ASPART 100 UNITS/ML 3 ML PEN SC SCH (23:17)
[2019-11-20] MEDS ORDERED: CEFEPIME CONSULT ACTIVE PRN (23:28)
[2019-11-20] MEDS: metroNIDAZOLE 500 MG/100 ML BAG IV SCH (23:29)
[2019-11-20 23:32] LABS: BUN Creatinine Ratio 18.2 (10-20); Calcium 8.3 mg/dl (8.5-10.1); Creatinine Clr Calc Pharmacy 28.9 ml/min; Est GFR (Non-African American) 34.5; Potassium 3.6 mmol/L (3.5-5.1)
[2019-11-21 00:32] LABS: Appearance Urine Clear (Clear); Bilirubin Urine Negative (Negative); Blood Urine Negative (Negative); Color Urine Dark Yellow; Epithelial Cell Urine Auto 0-5 /lpf (0-5); Glucose Urine UA Negative (Negative); Ketones Urine Negative (Negative); Leukocyte Esterase Urine Negative (Negative); Nitrite Urine Negative (Negative); Protein Urine Trace (Negative); RBC Urine Automated 0-4 /hpf (0-4); Specific Gravity Urine 1.021 (1.000-1.030); Urobilinogen Urine Negative (Negative)
[2019-11-21] MEDS: PANTOprazole 40 MG in DEXTROSE 5% 100 ML IV SCH ×3 (00:32→10:46)
[2019-11-21 00:52] LABS: Bacteria Urine Automated 2+ (Negative)
[2019-11-21] MEDS ORDERED: HYDROmorphone INJ 0.5 MG/0.5 ML SYR IV PRN (01:07)
[2019-11-21] MEDS ORDERED: SODIUM CHLORIDE 0.9% 500 ML IV ONE (01:08)
[2019-11-21] MEDS: LEVOTHYROXINE SODIUM 75 MCG TABLET PO SCH (05:36)
[2019-11-21 06:17] LABS: Hematocrit (blood only) 29.8 % (42-52); Hemoglobin 9.4 g/dL (14.0-18.0); Immature Granulocytes # (auto) 0.05 K/uL (0.00-0.02); Immature Granulocytes % (auto) 0.4 %; Lymphocytes # (auto) 1.26 K/uL (1.2-3.4); Lymphocytes % (auto) 10.2 %; Mean Corpuscular Hemoglobin 28.7 pg (25-34); Mean Corpuscular Hgb Conc 31.5 g/dL (32-36); Mean Corpuscular Volume 90.9 fL (80-100); Mean Platelet Volume 10.6 fL (7.4-10.4); Monocytes # (auto) 0.53 K/uL (0.11-0.59); Monocytes % (auto) 4.3 %; Neutrophils # (auto) 10.47 K/uL (1.4-6.5); Neutrophils % (auto) 85.1 %; Platelet Count 176 K/uL (130-400); RDW Coefficient of Variation 16.3 % (11.5-14.5); RDW Standard Deviation 53.7 fL (36.4-46.3); Red Blood Count 3.28 M/uL (4.7-6.1); White Blood Count 12.31 K/uL (4.8-10.8)
[2019-11-21 06:48] LABS: BUN Creatinine Ratio 20.1 (10-20); Calcium 7.8 mg/dl (8.5-10.1); Creatinine Clr Calc Pharmacy 30.9 ml/min; Est GFR (African American) 43.3; Est GFR (Non-African American) 37.3; Potassium 3.7 mmol/L (3.5-5.1)
[2019-11-21] MEDS: THIAMINE HCL 100 MG TAB PO SCH ×2 (07:39→16:35)
[2019-11-21] MEDS: FOLIC ACID 1 MG TAB PO SCH (07:39)
[2019-11-21] MEDS: metroNIDAZOLE 500 MG/100 ML BAG IV SCH ×3 (07:43→23:33)
[2019-11-21] MEDS: INSULIN ASPART 100 UNITS/ML 3 ML PEN SC SCH ×4 (08:07→21:20)
--- NOTE | 2019-11-21 09:27 | Surgery Consultation ---
Date of Consultation November 21, 2019 Assessment & Plan (1) GI bleed: 88 [facility] male [facility] from [facility] with hematochezia, rectal bleeding and melena for 2 days with decreased mentation compared to baseline. Hemoglobin 9.7. Leukcoytosis of 12.9K. CT scan with nonspecific colitis of left colon with portal venous gas and perigastric venous gas however no pneumatosis intestinalis or free air. Unable to obtain ROS as patient obtunded. Abdomen is soft, nondistended, nontender, no rigidity, or peritonitis. c. diff negative lactic acid 1.6 Plan: No acute surgical intervention required at this time as there is no acute abdomen. Will need to determine extent of intervention with patient's family Dr. Hartman to evaluate patient Continue IV Abx Continue IV fluids monitor H&H every 6hours Continue PPI drip Continue medical management Dr. Hartman has seen patient separately and recommended below: no surgical indication now, pt would not tolerate surgical treatment, recommend conservative treatment, IV fluid, IV antibiotic, cipro + flagyl, U/S study gallb ladder, GI consult, will F/U, I ( Brittani Hartman MD) just talk to pt's Daughter Barrett Gonzalez ([phone]) who wants to do comfort care only, no surgical treatment. Discussed daughters wishes of comfort care with hospitalist Dr. Cardenas. Will need to confirm daughters wishes. (2) Colitis: nonspecific colitis on CT with questional ischemic colitis given portal venous gas. No free air. plan as above History of Present Illness Reason for Consultation: Ischemic colitis Requesting Physician: Jamshid Cardenas MD Attending Physician: Jamshid Cardenas MD History of Present Illness History obtained from records as I was unable to obtain history from patient secondary to obtunded state. 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 2 days history of hematemesis, melanotic, rectal bleeding symptoms. Decreased mentation as per report. No reported complaints of abdominal pain. Er work-up included labs which showed leukocytosis of 12.9K. Hemoglobin 9.7. CT scan of abdomen and pelvis without contrast showed wall thickening and edema involving the colon, greatest involving the left colon with surrounding inflammation. The appearance is consistent with a nonspecific colitis. There is also some portal venous gas and venous gas in the perigastric vessels. No pneumatosis intestinalis or intraperitoneal free air is identified. Allergies Allergy/AdvReac Type Severity Reaction Status Date / Time Penicillins Allergy Intermediate Hives Verified 11/20/19 18:39 sulfamethoxazole Allergy Mild poss Verified 11/21/19 04:02 [From Bactrim] vasculitic rash trimethoprim [From Bactrim] Allergy Mild poss Verified 11/21/19 04:02 vasculitic rash Home Medications Home Medications Medication Instructions Recorded Confirmed Type cholecalciferol (vitamin D3) 1,000 units PO QAM 07/26/18 11/20/19 History [Vitamin D3] folic acid 1 mg PO QAM 07/26/18 11/20/19 History levothyroxine 75 mcg PO DAILYBB 07/26/18 11/20/19 History simvastatin 20 mg PO HS 07/26/18 11/20/19 History tamsulosin 0.4 mg PO QPM 07/26/18 11/20/19 History polyvinyl alcohol [Artificial 2 drp OPB QID 04/02/19 11/20/19 History Tears (polyvin alc)] acetaminophen 500 mg tablet 500 mg PO Q4H PRN #30 tab 04/21/19 11/20/19 Rx famotidine 20 mg PO HS 11/20/19 11/20/19 History ferrous sulfate 325 mg PO BID17 11/20/19 11/20/19 History food supplemt, lactose-reduced 1 ea PO BIDM 11/20/19 11/20/19 History [Boost] loratadine [Claritin] 10 mg PO HS 11/20/19 11/20/19 History thiamine HCl (vitamin B1) [Vitamin 100 mg PO BIDM 11/20/19 11/20/19 History B-1] Patient History Medical History Anemia (Acute) CAD (coronary artery disease) (Chronic) CHF (congestive heart failure) (Chronic) Cystitis (Chronic) Diverticulitis (Resolved) DVT (deep venous thrombosis) (Chronic ~02/16/14) Encephalopathy (Resolved) Hematuria, gross (Acute) HTN (hypertension) (Chronic) Hyperlipidemia (Acute) Hypertension (Acute) Hypothyroid (Chronic) NSTEMI (non-ST elevated myocardial infarction) (Resolved) Pneumonia (Resolved) Pressure ulcer (Acute) Prostate CA (Resolved) Prostate cancer (Resolved ~10/1983) Rhabdomyolysis (Resolved) SDH (subdural hematoma) TIA (transient ischemic attack) (Resolved) Urinary tract infection (Resolved) Surgical History S/P hernia repair (Resolved) Social History Preferred Language: Lebanese Communication Ability: Impaired Visual Impairment: Diminished Hearing Ability: Hard of Hearing Beliefs That Will Affect Care: None marital status: Current Living Situation: [facility] Current Living Situation Comment: PREVIOUSLY LIVED ALONE, [facility] current occupational status: retired 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 Feels Safe at Home: Declines to Answer Smoking Status: Unknown if ever smoked Hx Alcohol Use: No Hx Substance Use: No Review of Systems Review of Systems: unable to obtain due to patient being obtunded, no family in room Physical Exam Constitutional: no acute distress elderly male , obtunded, no acute distress Respiratory: no respiratory distress, no labored breathing and no retractions Gastrointestinal (Abdomen): Inspection/Auscultation: abdomen normal to inspection; abdomen not distended Percussion/Palpation: abdomen soft; abdomen nontender, no guarding and abdomen not rigid Skin: skin rash on bilateral lower legs Psychiatric: obtunded Results & Data Vital Signs (Past 12 Hours) Vital Signs Temp Pulse Pulse Resp BP BP Pulse Ox 11/21/19 07:00 36.3 C L 69 17 100/58 L 97 11/21/19 05:00 36.7 C 11/21/19 04:30 36.2 C L 11/21/19 03:25 36.1 C L 65 16 111/60 96 11/21/19 03:13 35.5 C L 11/21/19 02:43 35.3 C L 11/21/19 02:14 62 11/21/19 02:00 35.3 C L 11/21/19 01:30 34.8 C L 11/21/19 01:00 34.9 C L 73 20 107/67 95 11/21/19 00:52 34.8 C L 11/20/19 21:30 64 16 112/67 93 Laboratory Results 11/21/19 11/21/19 11/21/19 Range/Units 07:54 05:37 05:37 WBC 12.31 H (4.8-10.8) K/uL RBC 3.28 L (4.7-6.1) M/uL Hgb 9.4 L (14.0-18.0) g/dL Hct 29.8 L (42-52) % MCV 90.9 (80-100) fL MCH 28.7 (25-34) pg MCHC 31.5 L (32-36) g/dL RDW Std Deviation 53.7 H (36.4-46.3) fL RDW Coeff of Maite 16.3 H (11.5-14.5) % Plt Count 176 (130-400) K/uL MPV 10.6 H (7.4-10.4) fL Immature Gran % (Auto) 0.4 % Neut % (Auto) 85.1 % Lymph % (Auto) 10.2 % Castro % (Auto) 4.3 % Eos % (Auto) 0.0 % Baso % (Auto) 0.0 % Immature Gran # (Auto) 0.05 H (0.00-0.02) K/uL Neut # (Auto) 10.47 H (1.4-6.5) K/uL Lymph # (Auto) 1.26 (1.2-3.4) K/uL Castro # (Auto) 0.53 (0.11-0.59) K/uL Eos # (Auto) 0.00 (0-0.5) K/uL Baso # (Auto) 0.00 (0-0.2) K/uL PT (9.0-12.0) Seconds INR (0.9-1.1) APTT (21.0-31.0) Seconds PTT Ratio Sodium 138 (136-145) mmol/L Potassium 3.7 (3.5-5.1) mmol/L Chloride 107 (98-107) mmol/L Carbon Dioxide 27 (21-32) mmol/L Anion Gap 4.0 (3-11) BUN 33 H (7-18) mg/dl Creatinine 1.63 H (0.6-1.4) mg/dl Est Cr Clr Drug Dosing 30.9 Est GFR ( Amer) 43.3 Est GFR (Non-Af Amer) 37.3 BUN/Creatinine Ratio 20.1 H (10-20) Glucose 135 H (70-99) mg/dl POC Glucose 165 H (70-99) mg/dl Lactate (0.4-2.0) mmol/L Calcium 7.8 L (8.5-10.1) mg/dl Magnesium (1.8-2.4) mg/dl Total Bilirubin (0.2-1) mg/dl AST (15-37) U/L ALT (12-78) U/L Alkaline Phosphatase (45-117) U/L Ammonia (11-32) umol/L Troponin I (0-0.045) ng/ml Total Protein (6.4-8.2) gm/dl Albumin (3.4-5.0) gm/dl Globulin (2.5-4.0) gm/dl Albumin/Globulin Ratio (0.9-2) Lipase (73-393) U/L TSH (0.300-4.500) uIu/ml Free T4 (0.8-1.6) ng/dl Specimen Hemolysis Urine Color Urine Appearance (Clear) Urine pH (4.5-7.5) Ur Specific [place] (1.000-1.030) Urine Protein (Negative) Urine Glucose (UA) (Negative) Urine Ketones (Negative) Urine Blood (Negative) Urine Nitrite (Negative) Urine Bilirubin (Negative) Urine Urobilinogen (Negative) Ur Leukocyte Esterase (Negative) Urine WBC (Auto) (0-5) /hpf Urine RBC (Auto) (0-4) /hpf U Hyaline Cast (Auto) (0-5) /lpf U Epithel Cells (Auto) (0-5) /lpf Urine Bacteria (Auto) (Negative) Urine Yeast Stl C. diff Tox B Gene (Neg) Blood Type Antibody Screen 11/21/19 11/21/19 11/20/19 Range/Units 00:53 00:10 23:02 WBC (4.8-10.8) K/uL RBC (4.7-6.1) M/uL Hgb (14.0-18.0) g/dL Hct (42-52) % MCV (80-100) fL MCH (25-34) pg MCHC (32-36) g/dL RDW Std Deviation (36.4-46.3) fL RDW Coeff of Maite (11.5-14.5) % Plt Count (130-400) K/uL MPV (7.4-10.4) fL Immature Gran % (Auto) % Neut % (Auto) % Lymph % (Auto) % Castro % (Auto) % Eos % (Auto) % Baso % (Auto) % Immature Gran # (Auto) (0.00-0.02) K/uL Neut # (Auto) (1.4-6.5) K/uL Lymph # (Auto) (1.2-3.4) K/uL Castro # (Auto) (0.11-0.59) K/uL Eos # (Auto) (0-0.5) K/uL Baso # (Auto) (0-0.2) K/uL PT (9.0-12.0) Seconds INR (0.9-1.1) APTT (21.0-31.0) Seconds PTT Ratio Sodium (136-145) mmol/L Potassium (3.5-5.1) mmol/L Chloride (98-107) mmol/L Carbon Dioxide (21-32) mmol/L Anion Gap (3-11) BUN (7-18) mg/dl Creatinine (0.6-1.4) mg/dl Est Cr Clr Drug Dosing Est GFR ( Amer) Est GFR (Non-Af Amer) BUN/Creatinine Ratio (10-20) Glucose (70-99) mg/dl POC Glucose 146 H (70-99) mg/dl Lactate (0.4-2.0) mmol/L Calcium (8.5-10.1) mg/dl Magnesium (1.8-2.4) mg/dl Total Bilirubin (0.2-1) mg/dl AST (15-37) U/L ALT (12-78) U/L Alkaline Phosphatase (45-117) U/L Ammonia (11-32) umol/L Troponin I (0-0.045) ng/ml Total Protein (6.4-8.2) gm/dl Albumin (3.4-5.0) gm/dl Globulin (2.5-4.0) gm/dl Albumin/Globulin Ratio (0.9-2) Lipase (73-393) U/L TSH (0.300-4.500) uIu/ml Free T4 (0.8-1.6) ng/dl Specimen Hemolysis Urine Color Dark Yellow Urine Appearance Clear (Clear) Urine pH 5.0 (4.5-7.5) Ur Specific [place] 1.021 (1.000-1.030) Urine Protein Trace H (Negative) Urine Glucose (UA) Negative (Negative) Urine Ketones Negative (Negative) Urine Blood Negative (Negative) Urine Nitrite Negative (Negative) Urine Bilirubin Negative (Negative) Urine Urobilinogen Negative (Negative) Ur Leukocyte Esterase Negative (Negative) Urine WBC (Auto) 1-5 (0-5) /hpf Urine RBC (Auto) 0-4 (0-4) /hpf U Hyaline Cast (Auto) 1-5 (0-5) /lpf U Epithel Cells (Auto) 0-5 (0-5) /lpf Urine Bacteria (Auto) 2+ H (Negative) Urine Yeast Not Reportable Stl C. diff Tox B Gene Negative Cdiff Gene (Neg) Blood Type Antibody Screen 11/20/19 11/20/19 11/20/19 Range/Units 22:53 22:53 22:53 WBC (4.8-10.8) K/uL RBC (4.7-6.1) M/uL Hgb (14.0-18.0) g/dL Hct (42-52) % MCV (80-100) fL MCH (25-34) pg MCHC (32-36) g/dL RDW Std Deviation (36.4-46.3) fL RDW Coeff of Maite (11.5-14.5) % Plt Count (130-400) K/uL MPV (7.4-10.4) fL Immature Gran % (Auto) % Neut % (Auto) % Lymph % (Auto) % Castro % (Auto) % Eos % (Auto) % Baso % (Auto) % Immature Gran # (Auto) (0.00-0.02) K/uL Neut # (Auto) (1.4-6.5) K/uL Lymph # (Auto) (1.2-3.4) K/uL Castro # (Auto) (0.11-0.59) K/uL Eos # (Auto) (0-0.5) K/uL Baso # (Auto) (0-0.2) K/uL PT (9.0-12.0) Seconds INR (0.9-1.1) APTT (21.0-31.0) Seconds PTT Ratio Sodium 139 (136-145) mmol/L Potassium 3.6 (3.5-5.1) mmol/L Chloride 104 (98-107) mmol/L Carbon Dioxide 27 (21-32) mmol/L Anion Gap 7.0 (3-11) BUN 32 H (7-18) mg/dl Creatinine 1.74 H D (0.6-1.4) mg/dl Est Cr Clr Drug Dosing 28.9 Est GFR ( Amer) 40.0 Est GFR (Non-Af Amer) 34.5 BUN/Creatinine Ratio 18.2 (10-20) Glucose 139 H (70-99) mg/dl POC Glucose (70-99) mg/dl Lactate 1.6 (0.4-2.0) mmol/L Calcium 8.3 L (8.5-10.1) mg/dl Magnesium (1.8-2.4) mg/dl Total Bilirubin (0.2-1) mg/dl AST (15-37) U/L ALT (12-78) U/L Alkaline Phosphatase (45-117) U/L Ammonia 21.1 (11-32) umol/L Troponin I (0-0.045) ng/ml Total Protein (6.4-8.2) gm/dl Albumin (3.4-5.0) gm/dl Globulin (2.5-4.0) gm/dl Albumin/Globulin Ratio (0.9-2) Lipase (73-393) U/L TSH (0.300-4.500) uIu/ml Free T4 (0.8-1.6) ng/dl Specimen Hemolysis Urine Color Urine Appearance (Clear) Urine pH (4.5-7.5) Ur Specific [place] (1.000-1.030) Urine Protein (Negative) Urine Glucose (UA) (Negative) Urine Ketones (Negative) Urine Blood (Negative) Urine Nitrite (Negative) Urine Bilirubin (Negative) Urine Urobilinogen (Negative) Ur Leukocyte Esterase (Negative) Urine WBC (Auto) (0-5) /hpf Urine RBC (Auto) (0-4) /hpf U Hyaline Cast (Auto) (0-5) /lpf U Epithel Cells (Auto) (0-5) /lpf Urine Bacteria (Auto) (Negative) Urine Yeast Stl C. diff Tox B Gene (Neg) Blood Type Antibody Screen 11/20/19 11/20/19 11/20/19 Range/Units 22:53 18:22 18:22 WBC (4.8-10.8) K/uL RBC (4.7-6.1) M/uL Hgb 9.7 L (14.0-18.0) g/dL Hct 29.9 L (42-52) % MCV (80-100) fL MCH (25-34) pg MCHC (32-36) g/dL RDW Std Deviation (36.4-46.3) fL RDW Coeff of Maite (11.5-14.5) % Plt Count (130-400) K/uL MPV (7.4-10.4) fL Immature Gran % (Auto) % Neut % (Auto) % Lymph % (Auto) % Castro % (Auto) % Eos % (Auto) % Baso % (Auto) % Immature Gran # (Auto) (0.00-0.02) K/uL Neut # (Auto) (1.4-6.5) K/uL Lymph # (Auto) (1.2-3.4) K/uL Castro # (Auto) (0.11-0.59) K/uL Eos # (Auto) (0-0.5) K/uL Baso # (Auto) (0-0.2) K/uL PT 14.0 H (9.0-12.0) Seconds INR 1.4 H (0.9-1.1) APTT 24.0 (21.0-31.0) Seconds PTT Ratio 0.9 Sodium 137 (136-145) mmol/L Potassium 3.8 (3.5-5.1) mmol/L Chloride 102 (98-107) mmol/L Carbon Dioxide 27 (21-32) mmol/L Anion Gap 8.0 (3-11) BUN 32 H (7-18) mg/dl Creatinine 2.11 H (0.6-1.4) mg/dl Est Cr Clr Drug Dosing Not Reportable Est GFR ( Amer) 31.7 Est GFR (Non-Af Amer) 27.3 BUN/Creatinine Ratio 15.1 (10-20) Glucose 143 H (70-99) mg/dl POC Glucose (70-99) mg/dl Lactate (0.4-2.0) mmol/L Calcium 8.6 (8.5-10.1) mg/dl Magnesium 1.8 (1.8-2.4) mg/dl Total Bilirubin 0.8 (0.2-1) mg/dl AST 24 (15-37) U/L ALT 20 (12-78) U/L Alkaline Phosphatase 135 H (45-117) U/L Ammonia (11-32) umol/L Troponin I < 0.015 (0-0.045) ng/ml Total Protein 8.3 H (6.4-8.2) gm/dl Albumin 1.9 L (3.4-5.0) gm/dl Globulin 6.4 H (2.5-4.0) gm/dl Albumin/Globulin Ratio 0.3 L (0.9-2) Lipase 41 L (73-393) U/L TSH 6.750 H (0.300-4.500) uIu/ml Free T4 1.24 (0.8-1.6) ng/dl Specimen Hemolysis Urine Color Urine Appearance (Clear) Urine pH (4.5-7.5) Ur Specific [place] (1.000-1.030) Urine Protein (Negative) Urine Glucose (UA) (Negative) Urine Ketones (Negative) Urine Blood (Negative) Urine Nitrite (Negative) Urine Bilirubin (Negative) Urine Urobilinogen (Negative) Ur Leukocyte Esterase (Negative) Urine WBC (Auto) (0-5) /hpf Urine RBC (Auto) (0-4) /hpf U Hyaline Cast (Auto) (0-5) /lpf U Epithel Cells (Auto) (0-5) /lpf Urine Bacteria (Auto) (Negative) Urine Yeast Stl C. diff Tox B Gene (Neg) Blood Type Antibody Screen 11/20/19 11/20/19 Range/Units 18:22 18:22 WBC 12.91 H (4.8-10.8) K/uL RBC 3.99 L (4.7-6.1) M/uL Hgb 11.5 L (14.0-18.0) g/dL Hct 36.3 L (42-52) % MCV 91.0 (80-100) fL MCH 28.8 (25-34) pg MCHC 31.7 L (32-36) g/dL RDW Std Deviation 53.6 H (36.4-46.3) fL RDW Coeff of Maite 16.3 H (11.5-14.5) % Plt Count 176 (130-400) K/uL MPV 11.2 H (7.4-10.4) fL Immature Gran % (Auto) 0.6 % Neut % (Auto) 82.6 % Lymph % (Auto) 10.6 % Castro % (Auto) 6.1 % Eos % (Auto) 0.0 % Baso % (Auto) 0.1 % Immature Gran # (Auto) 0.08 H (0.00-0.02) K/uL Neut # (Auto) 10.66 H (1.4-6.5) K/uL Lymph # (Auto) 1.37 (1.2-3.4) K/uL Castro # (Auto) 0.79 H (0.11-0.59) K/uL Eos # (Auto) 0.00 (0-0.5) K/uL Baso # (Auto) 0.01 (0-0.2) K/uL PT (9.0-12.0) Seconds INR (0.9-1.1) APTT (21.0-31.0) Seconds PTT Ratio Sodium (136-145) mmol/L Potassium (3.5-5.1) mmol/L Chloride (98-107) mmol/L Carbon Dioxide (21-32) mmol/L Anion Gap (3-11) BUN (7-18) mg/dl Creatinine (0.6-1.4) mg/dl Est Cr Clr Drug Dosing Est GFR ( Amer) Est GFR (Non-Af Amer) BUN/Creatinine Ratio (10-20) Glucose (70-99) mg/dl POC Glucose (70-99) mg/dl Lactate (0.4-2.0) mmol/L Calcium (8.5-10.1) mg/dl Magnesium (1.8-2.4) mg/dl Total Bilirubin (0.2-1) mg/dl AST (15-37) U/L ALT (12-78) U/L Alkaline Phosphatase (45-117) U/L Ammonia (11-32) umol/L Troponin I (0-0.045) ng/ml Total Protein (6.4-8.2) gm/dl Albumin (3.4-5.0) gm/dl Globulin (2.5-4.0) gm/dl Albumin/Globulin Ratio (0.9-2) Lipase (73-393) U/L TSH (0.300-4.500) uIu/ml Free T4 (0.8-1.6) ng/dl Specimen Hemolysis Urine Color Urine Appearance (Clear) Urine pH (4.5-7.5) Ur Specific [place] (1.000-1.030) Urine Protein (Negative) Urine Glucose (UA) (Negative) Urine Ketones (Negative) Urine Blood (Negative) Urine Nitrite (Negative) Urine Bilirubin (Negative) Urine Urobilinogen (Negative) Ur Leukocyte Esterase (Negative) Urine WBC (Auto) (0-5) /hpf Urine RBC (Auto) (0-4) /hpf U Hyaline Cast (Auto) (0-5) /lpf U Epithel Cells (Auto) (0-5) /lpf Urine Bacteria (Auto) (Negative) Urine Yeast Stl C. diff Tox B Gene (Neg) Blood Type B Positive Antibody Screen NEGATIVE Diagnostic Findings CT SCAN OF THE ABDOMEN AND PELVIS WITHOUT IV CONTRAST CLINICAL HISTORY: Generalized abdominal pain. COMPARISON STUDY: Abdominal CT dated 07/26/2018. TECHNIQUE: CT scan of the abdomen and pelvis is performed from the lung bases to the proximal femora. Images are reviewed in the axial, sagittal, and coronal planes. IV contrast was not administered for this examination as per the referring clinician. Note that the examination was performed in significantly suboptimal fashion without oral and IV contrast. The examination is also degraded by streak artifact from the arms which could not be elevated above the abdomen and motion artifact. A dose lowering technique was utilized adhering to the principles of ALARA. FINDINGS: Lung bases: The heart is enlarged and there is trace pericardial effusion. The coronary arteries are densely calcified. Calcification of the interventricular septum suggests previous ischemia. There is a small hiatal hernia. There is bibasilar scarring/atelectasis. No airspace consolidation or pleural effusion is identified. Liver: Evaluation of the liver is compromised by streak artifact. The unenhanced liver is normal in size, contour, and attenuation. There is no intrahepatic biliary ductal dilatation. There are numerous foci of portal venous gas. Gallbladder: There are layering calcified gallstones. Question pericholecystic inflammation. Spleen: Normal in size and attenuation. Pancreas: The unenhanced pancreas is atrophic and grossly unremarkable. Adrenal glands: Unremarkable. Kidneys: The kidneys are not well assessed due to streak artifact. The unenhanced kidneys demonstrate cortical atrophy and are without hydronephrosis. There are no renal calculi identified. Bilateral renal cysts measure up to 4.6 cm. Additional subcentimeter cortical hypodensities also likely represent cysts but are too small for definitive characterization. Abdominal vasculature: There is advanced atherosclerotic calcification and ectasia of the abdominal aorta. The abdominal aorta measures up to 2.7 cm in diameter. Bowel: There is no bowel obstruction. There is moderate colonic diverticulosis without CT evidence of acute diverticulitis. There is mild wall thickening seen throughout the left colon with associated pericolonic inflammation. The appearance is consistent with a nonspecific colitis. No pneumatosis intestinalis is identified. There are numerous foci of portal venous gas. Gas is also present within perigastric vessels. There is diverticulosis of the distal small bowel identified in the right lower quadrant. The appendix is not identified. Peritoneum: There is no intraperitoneal free air or abdominal ascites. Lymphadenopathy: None. Pelvic viscera: The prostate gland is diminutive and heterogeneous. There is median lobe hypertrophy. The bladder wall is thickened and trabeculated indicating chronic outlet obstruction. A small urachal diverticulum is noted at the bladder dome. Pericystic inflammation is observed. Skeletal structures: The skeletal structures are osteopenic. There is moderate to advanced lumbosacral spondylosis. Bilateral pars defects are noted at L5. No lytic or blastic lesions are seen. There are healed left-sided rib fractures. IMPRESSION: 1. Suboptimal examination without oral and IV contrast. The examination is also compromised by streak and motion artifact. 2. There is wall thickening and edema seen involving the colon, greatest involving the left colon with surrounding inflammation. The appearance is consistent with a nonspecific colitis. 3. There are numerous foci of portal venous gas identified. There is also venous gas within perigastric vessels. This can be seen in the setting of bowel ischemia. Clinical correlation will be essential and surgical consultation is advised. 4. No pneumatosis intestinalis or intraperitoneal free air is identified. 5. There are calcified gallstones. Pericholecystic inflammation is suggested. Correlate clinically for evidence of acute cholecystitis. Ultrasound could be considered for further assessment. 6. Question cystitis. Correlation with urinalysis will be required. 7. Cardiomegaly. 8. There is diverticulosis of the small bowel and colon without clear CT evidence of acute diverticulitis. 9. Additional findings as above.
--- NOTE | 2019-11-21 09:38 | Hospitalist Progress Note ---
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 difficile) source Medical telemetry Bowel rest IV PPI for UGI bleed Trend H&H, transfuse PRBC if hemoglobin less than 8 and or for symptomatic anemia GI consult RE U GIB Cefepime, Flagyl for possible ischemic colitis Check stool C. difficile Surgery consult Re: Ischemic colitis - surgeon contacted pt's daughter and informed her that surgery is high risk for the pt, daughter agrees not to proceed with surgery - she does state that she wants her father to feel comfortable and w/o pain, however she still want to cont. IVF, IV Abx, blood transfusion as needed, even endoscopies if they would be helpful - discussed with her that GI was consulted and at this moment no plan for endoscopy as bleed is believed to be secondary to ischemic bowel and therefore referred to surgery - Palliative care was consulted - at this point daughter / POA wants to continue IVF, IV Abx, blood transfusions..., plan to re-assess daily ARF secondary to illness Recent UTI status post Bactrim Rx - baseline UA - Cr improving w/ IV hydration - cont. to monitor, try to avoid nephrotoxic agents Encephalopathy secondary to illness - examined again in the afternoon, seems to be improving Vasculitic rash ? 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 Pate) once GI bleed stabilized Chronic diastolic heart failure (EF 55 to 60%, TTE 2018), patient clinically dry hx CAD/CVA as per records hypertension, stable BPH, prostate cancer status post radiation past history DVT as per records Chronic anemia, hemoglobin on admission better than baseline likely secondary to hemoconcentration New diagnosis of DM 2, outpatient hemoglobin A1c of 6.11 October 2019 ISS BG goal [id number] past tobacco abuse DVT phylaxis. SCDs RE GI bleed Code: DNR as per daughter/POA, Ms. Barrett Gonzalez, she can be contacted at [phone]. Admission and Anticipated Discharge Date Admission Date: November 20, 2019 Subjective Pt is lying in bed, somnolent but arousable,denies fever, chills, chest pain, shortness of breath. Reports some left lower quadrant abd. pain. Monitor H&H GI and gen. surgery consulted in the afternoon small brown stool reported Discussed with patient's daughter, and POA, current care. She discussed the possible surgery with our surgeon, and understands that the risk is too high, and she would not want to proceed with surgery. She wants to make sure that her father is in no pain and comfortable. However she does want to continue with IV fluids, blood transfusions, antibiotics, even endoscopies, if they would help. Palliative medicine consulted Review of Systems Review of Systems: All systems reviewed & are unremarkable except as noted in HPI & below Constitutional: no fever and no chills Respiratory: no cough and no dyspnea Cardiovascular: no chest pain and no palpitations Gastrointestinal: + abdominal pain (left lower quadrant, mild pain), + hematemesis (reported), + blood in stools (reported) and + melena (reported) Physical Exam Physical Exam: GENERAL: elderly male somnolent but arousable,difficult to communicate with,in no respiratory distress HEENT: NC/AT, Pale palpebral conjunctivae, no ptosis, dry buccal mucosa, dark dry blood in mouth NECK : Supple, no tenderness CHEST : Decreased breath sounds, CTAB HEART : RRR, no obvious murmurs ABDOMEN: positive bowel sounds, soft,nondistended, tenderness on palpation at LLQ EXTREMITIES : Petechial rash both lower extremities and hands, no LE swell ing/tenderness, no other conspicuous deformities noted SKIN: Pallor , warm NEUROLOGIC/PSYCH : somnolent but arousable , no facial asymmetry, moves extremities spont., not oriented and does not answer all questions appropriately Results & Data ([facility]) Vital Signs (Past 12 Hours) Vital Signs Temp Pulse Pulse Resp BP Pulse Ox 11/21/19 07:00 36.3 C L 69 17 100/58 L 97 11/21/19 05:00 36.7 C 11/21/19 04:30 36.2 C L 11/21/19 03:25 36.1 C L 65 16 111/60 96 11/21/19 03:13 35.5 C L 11/21/19 02:43 35.3 C L 11/21/19 02:14 62 11/21/19 02:00 35.3 C L 11/21/19 01:30 34.8 C L 11/21/19 01:00 34.9 C L 73 20 107/67 95 11/21/19 00:52 34.8 C L Laboratory Results 11/21/19 11/21/19 11/21/19 Range/Units 07:54 05:37 05:37 WBC 12.31 H (4.8-10.8) K/uL RBC 3.28 L (4.7-6.1) M/uL Hgb 9.4 L (14.0-18.0) g/dL Hct 29.8 L (42-52) % MCV 90.9 (80-100) fL MCH 28.7 (25-34) pg MCHC 31.5 L (32-36) g/dL RDW Std Deviation 53.7 H (36.4-46.3) fL RDW Coeff of Maite 16.3 H (11.5-14.5) % Plt Count 176 (130-400) K/uL MPV 10.6 H (7.4-10.4) fL Immature Gran % (Auto) 0.4 % Neut % (Auto) 85.1 % Lymph % (Auto) 10.2 % [place] % (Auto) 4.3 % Eos % (Auto) 0.0 % Baso % (Auto) 0.0 % Immature Gran # (Auto) 0.05 H (0.00-0.02) K/uL Neut # (Auto) 10.47 H (1.4-6.5) K/uL Lymph # (Auto) 1.26 (1.2-3.4) K/uL [place] # (Auto) 0.53 (0.11-0.59) K/uL Eos # (Auto) 0.00 (0-0.5) K/uL Baso # (Auto) 0.00 (0-0.2) K/uL PT (9.0-12.0) Seconds INR (0.9-1.1) APTT (21.0-31.0) Seconds PTT Ratio Sodium 138 (136-145) mmol/L Potassium 3.7 (3.5-5.1) mmol/L Chloride 107 (98-107) mmol/L Carbon Dioxide 27 (21-32) mmol/L Anion Gap 4.0 (3-11) BUN 33 H (7-18) mg/dl Creatinine 1.63 H (0.6-1.4) mg/dl Est Cr Clr Drug Dosing 30.9 Est GFR ( Amer) 43.3 Est GFR (Non-Af Amer) 37.3 BUN/Creatinine Ratio 20.1 H (10-20) Glucose 135 H (70-99) mg/dl POC Glucose 165 H (70-99) mg/dl Lactate (0.4-2.0) mmol/L Calcium 7.8 L (8.5-10.1) mg/dl Magnesium (1.8-2.4) mg/dl Total Bilirubin (0.2-1) mg/dl AST (15-37) U/L ALT (12-78) U/L Alkaline Phosphatase (45-117) U/L Ammonia (11-32) umol/L Troponin I (0-0.045) ng/ml Total Protein (6.4-8.2) gm/dl Albumin (3.4-5.0) gm/dl Globulin (2.5-4.0) gm/dl Albumin/Globulin Ratio (0.9-2) Lipase (73-393) U/L TSH (0.300-4.500) uIu/ml Free T4 (0.8-1.6) ng/dl Specimen Hemolysis Urine Color Urine Appearance (Clear) Urine pH (4.5-7.5) Ur Specific [place] (1.000-1.030) Urine Protein (Negative) Urine Glucose (UA) (Negative) Urine Ketones (Negative) Urine Blood (Negative) Urine Nitrite (Negative) Urine Bilirubin (Negative) Urine Urobilinogen (Negative) Ur Leukocyte Esterase (Negative) Urine WBC (Auto) (0-5) /hpf Urine RBC (Auto) (0-4) /hpf U Hyaline Cast (Auto) (0-5) /lpf U Epithel Cells (Auto) (0-5) /lpf Urine Bacteria (Auto) (Negative) Urine Yeast Stl C. diff Tox B Gene (Neg) Blood Type Antibody Screen 11/21/19 11/21/19 11/20/19 Range/Units 00:53 00:10 23:02 WBC (4.8-10.8) K/uL RBC (4.7-6.1) M/uL Hgb (14.0-18.0) g/dL Hct (42-52) % MCV (80-100) fL MCH (25-34) pg MCHC (32-36) g/dL RDW Std Deviation (36.4-46.3) fL RDW Coeff of Maite (11.5-14.5) % Plt Count (130-400) K/uL MPV (7.4-10.4) fL Immature Gran % (Auto) % Neut % (Auto) % Lymph % (Auto) % [place] % (Auto) % Eos % (Auto) % Baso % (Auto) % Immature Gran # (Auto) (0.00-0.02) K/uL Neut # (Auto) (1.4-6.5) K/uL Lymph # (Auto) (1.2-3.4) K/uL [place] # (Auto) (0.11-0.59) K/uL Eos # (Auto) (0-0.5) K/uL Baso # (Auto) (0-0.2) K/uL PT (9.0-12.0) Seconds INR (0.9-1.1) APTT (21.0-31.0) Seconds PTT Ratio Sodium (136-145) mmol/L Potassium (3.5-5.1) mmol/L Chloride (98-107) mmol/L Carbon Dioxide (21-32) mmol/L Anion Gap (3-11) BUN (7-18) mg/dl Creatinine (0.6-1.4) mg/dl Est Cr Clr Drug Dosing Est GFR ( Amer) Est GFR (Non-Af Amer) BUN/Creatinine Ratio (10-20) Glucose (70-99) mg/dl POC Glucose 146 H (70-99) mg/dl Lactate (0.4-2.0) mmol/L Calcium (8.5-10.1) mg/dl Magnesium (1.8-2.4) mg/dl Total Bilirubin (0.2-1) mg/dl AST (15-37) U/L ALT (12-78) U/L Alkaline Phosphatase (45-117) U/L Ammonia (11-32) umol/L Troponin I (0-0.045) ng/ml Total Protein (6.4-8.2) gm/dl Albumin (3.4-5.0) gm/dl Globulin (2.5-4.0) gm/dl Albumin/Globulin Ratio (0.9-2) Lipase (73-393) U/L TSH (0.300-4.500) uIu/ml Free T4 (0.8-1.6) ng/dl Specimen Hemolysis Urine Color Dark Yellow Urine Appearance Clear (Clear) Urine pH 5.0 (4.5-7.5) Ur Specific [place] 1.021 (1.000-1.030) Urine Protein Trace H (Negative) Urine Glucose (UA) Negative (Negative) Urine Ketones Negative (Negative) Urine Blood Negative (Negative) Urine Nitrite Negative (Negative) Urine Bilirubin Negative (Negative) Urine Urobilinogen Negative (Negative) Ur Leukocyte Esterase Negative (Negative) Urine WBC (Auto) 1-5 (0-5) /hpf Urine RBC (Auto) 0-4 (0-4) /hpf U Hyaline Cast (Auto) 1-5 (0-5) /lpf U Epithel Cells (Auto) 0-5 (0-5) /lpf Urine Bacteria (Auto) 2+ H (Negative) Urine Yeast Not Reportable Stl C. diff Tox B Gene Negative Cdiff Gene (Neg) Blood Type Antibody Screen 11/20/19 11/20/19 11/20/19 Range/Units 22:53 22:53 22:53 WBC (4.8-10.8) K/uL RBC (4.7-6.1) M/uL Hgb (14.0-18.0) g/dL Hct (42-52) % MCV (80-100) fL MCH (25-34) pg MCHC (32-36) g/dL RDW Std Deviation (36.4-46.3) fL RDW Coeff of Maite (11.5-14.5) % Plt Count (130-400) K/uL MPV (7.4-10.4) fL Immature Gran % (Auto) % Neut % (Auto) % Lymph % (Auto) % [place] % (Auto) % Eos % (Auto) % Baso % (Auto) % Immature Gran # (Auto) (0.00-0.02) K/uL Neut # (Auto) (1.4-6.5) K/uL Lymph # (Auto) (1.2-3.4) K/uL [place] # (Auto) (0.11-0.59) K/uL Eos # (Auto) (0-0.5) K/uL Baso # (Auto) (0-0.2) K/uL PT (9.0-12.0) Seconds INR (0.9-1.1) APTT (21.0-31.0) Seconds PTT Ratio Sodium 139 (136-145) mmol/L Potassium 3.6 (3.5-5.1) mmol/L Chloride 104 (98-107) mmol/L Carbon Dioxide 27 (21-32) mmol/L Anion Gap 7.0 (3-11) BUN 32 H (7-18) mg/dl Creatinine 1.74 H D (0.6-1.4) mg/dl Est Cr Clr Drug Dosing 28.9 Est GFR ( Amer) 40.0 Est GFR (Non-Af Amer) 34.5 BUN/Creatinine Ratio 18.2 (10-20) Glucose 139 H (70-99) mg/dl POC Glucose (70-99) mg/dl Lactate 1.6 (0.4-2.0) mmol/L Calcium 8.3 L (8.5-10.1) mg/dl Magnesium (1.8-2.4) mg/dl Total Bilirubin (0.2-1) mg/dl AST (15-37) U/L ALT (12-78) U/L Alkaline Phosphatase (45-117) U/L Ammonia 21.1 (11-32) umol/L Troponin I (0-0.045) ng/ml Total Protein (6.4-8.2) gm/dl Albumin (3.4-5.0) gm/dl Globulin (2.5-4.0) gm/dl Albumin/Globulin Ratio (0.9-2) Lipase (73-393) U/L TSH (0.300-4.500) uIu/ml Free T4 (0.8-1.6) ng/dl Specimen Hemolysis Urine Color Urine Appearance (Clear) Urine pH (4.5-7.5) Ur Specific [place] (1.000-1.030) Urine Protein (Negative) Urine Glucose (UA) (Negative) Urine Ketones (Negative) Urine Blood (Negative) Urine Nitrite (Negative) Urine Bilirubin (Negative) Urine Urobilinogen (Negative) Ur Leukocyte Esterase (Negative) Urine WBC (Auto) (0-5) /hpf Urine RBC (Auto) (0-4) /hpf U Hyaline Cast (Auto) (0-5) /lpf U Epithel Cells (Auto) (0-5) /lpf Urine Bacteria (Auto) (Negative) Urine Yeast Stl C. diff Tox B Gene (Neg) Blood Type Antibody Screen 11/20/19 11/20/19 11/20/19 Range/Units 22:53 18:22 18:22 WBC (4.8-10.8) K/uL RBC (4.7-6.1) M/uL Hgb 9.7 L (14.0-18.0) g/dL Hct 29.9 L (42-52) % MCV (80-100) fL MCH (25-34) pg MCHC (32-36) g/dL RDW Std Deviation (36.4-46.3) fL RDW Coeff of Maite (11.5-14.5) % Plt Count (130-400) K/uL MPV (7.4-10.4) fL Immature Gran % (Auto) % Neut % (Auto) % Lymph % (Auto) % [place] % (Auto) % Eos % (Auto) % Baso % (Auto) % Immature Gran # (Auto) (0.00-0.02) K/uL Neut # (Auto) (1.4-6.5) K/uL Lymph # (Auto) (1.2-3.4) K/uL [place] # (Auto) (0.11-0.59) K/uL Eos # (Auto) (0-0.5) K/uL Baso # (Auto) (0-0.2) K/uL PT 14.0 H (9.0-12.0) Seconds INR 1.4 H (0.9-1.1) APTT 24.0 (21.0-31.0) Seconds PTT Ratio 0.9 Sodium 137 (136-145) mmol/L Potassium 3.8 (3.5-5.1) mmol/L Chloride 102 (98-107) mmol/L Carbon Dioxide 27 (21-32) mmol/L Anion Gap 8.0 (3-11) BUN 32 H (7-18) mg/dl Creatinine 2.11 H (0.6-1.4) mg/dl Est Cr Clr Drug Dosing Not Reportable Est GFR ( Amer) 31.7 Est GFR (Non-Af Amer) 27.3 BUN/Creatinine Ratio 15.1 (10-20) Glucose 143 H (70-99) mg/dl POC Glucose (70-99) mg/dl Lactate (0.4-2.0) mmol/L Calcium 8.6 (8.5-10.1) mg/dl Magnesium 1.8 (1.8-2.4) mg/dl Total Bilirubin 0.8 (0.2-1) mg/dl AST 24 (15-37) U/L ALT 20 (12-78) U/L Alkaline Phosphatase 135 H (45-117) U/L Ammonia (11-32) umol/L Troponin I < 0.015 (0-0.045) ng/ml Total Protein 8.3 H (6.4-8.2) gm/dl Albumin 1.9 L (3.4-5.0) gm/dl Globulin 6.4 H (2.5-4.0) gm/dl Albumin/Globulin Ratio 0.3 L (0.9-2) Lipase 41 L (73-393) U/L TSH 6.750 H (0.300-4.500) uIu/ml Free T4 1.24 (0.8-1.6) ng/dl Specimen Hemolysis Urine Color Urine Appearance (Clear) Urine pH (4.5-7.5) Ur Specific [place] (1.000-1.030) Urine Protein (Negative) Urine Glucose (UA) (Negative) Urine Ketones (Negative) Urine Blood (Negative) Urine Nitrite (Negative) Urine Bilirubin (Negative) Urine Urobilinogen (Negative) Ur Leukocyte Esterase (Negative) Urine WBC (Auto) (0-5) /hpf Urine RBC (Auto) (0-4) /hpf U Hyaline Cast (Auto) (0-5) /lpf U Epithel Cells (Auto) (0-5) /lpf Urine Bacteria (Auto) (Negative) Urine Yeast Stl C. diff Tox B Gene (Neg) Blood Type Antibody Screen 11/20/19 11/20/19 Range/Units 18:22 18:22 WBC 12.91 H (4.8-10.8) K/uL RBC 3.99 L (4.7-6.1) M/uL Hgb 11.5 L (14.0-18.0) g/dL Hct 36.3 L (42-52) % MCV 91.0 (80-100) fL MCH 28.8 (25-34) pg MCHC 31.7 L (32-36) g/dL RDW Std Deviation 53.6 H (36.4-46.3) fL RDW Coeff of Maite 16.3 H (11.5-14.5) % Plt Count 176 (130-400) K/uL MPV 11.2 H (7.4-10.4) fL Immature Gran % (Auto) 0.6 % Neut % (Auto) 82.6 % Lymph % (Auto) 10.6 % [place] % (Auto) 6.1 % Eos % (Auto) 0.0 % Baso % (Auto) 0.1 % Immature Gran # (Auto) 0.08 H (0.00-0.02) K/uL Neut # (Auto) 10.66 H (1.4-6.5) K/uL Lymph # (Auto) 1.37 (1.2-3.4) K/uL [place] # (Auto) 0.79 H (0.11-0.59) K/uL Eos # (Auto) 0.00 (0-0.5) K/uL Baso # (Auto) 0.01 (0-0.2) K/uL PT (9.0-12.0) Seconds INR (0.9-1.1) APTT (21.0-31.0) Seconds PTT Ratio Sodium (136-145) mmol/L Potassium (3.5-5.1) mmol/L Chloride (98-107) mmol/L Carbon Dioxide (21-32) mmol/L Anion Gap (3-11) BUN (7-18) mg/dl Creatinine (0.6-1.4) mg/dl Est Cr Clr Drug Dosing Est GFR ( Amer) Est GFR (Non-Af Amer) BUN/Creatinine Ratio (10-20) Glucose (70-99) mg/dl POC Glucose (70-99) mg/dl Lactate (0.4-2.0) mmol/L Calcium (8.5-10.1) mg/dl Magnesium (1.8-2.4) mg/dl Total Bilirubin (0.2-1) mg/dl AST (15-37) U/L ALT (12-78) U/L Alkaline Phosphatase (45-117) U/L Ammonia (11-32) umol/L Troponin I (0-0.045) ng/ml Total Protein (6.4-8.2) gm/dl Albumin (3.4-5.0) gm/dl Globulin (2.5-4.0) gm/dl Albumin/Globulin Ratio (0.9-2) Lipase (73-393) U/L TSH (0.300-4.500) uIu/ml Free T4 (0.8-1.6) ng/dl Specimen Hemolysis Urine Color Urine Appearance (Clear) Urine pH (4.5-7.5) Ur Specific [place] (1.000-1.030) Urine Protein (Negative) Urine Glucose (UA) (Negative) Urine Ketones (Negative) Urine Blood (Negative) Urine Nitrite (Negative) Urine Bilirubin (Negative) Urine Urobilinogen (Negative) Ur Leukocyte Esterase (Negative) Urine WBC (Auto) (0-5) /hpf Urine RBC (Auto) (0-4) /hpf U Hyaline Cast (Auto) (0-5) /lpf U Epithel Cells (Auto) (0-5) /lpf Urine Bacteria (Auto) (Negative) Urine Yeast Stl C. diff Tox B Gene (Neg) Blood Type B Positive Antibody Screen NEGATIVE Medications Administered Current Inpatient Medications Acetaminophen (Tylenol) 650 mg PO Q4H PRN PRN Reason: Pain or Fever Stop: 12/20/19 22:21 Dextrose (Dextrose 50%) 25 - 50 ml IV UD PRN; Protocol PRN Reason: Hypoglycemia Protocol Stop: 12/20/19 22:21 [facility]) [facility] [place]: 12/21/19 08:59 Last Admin: 11/21/19 07:39 Dose: Not Given Documented by: Glucagon (Glucagen) 1 mg SQ UD PRN; Protocol PRN Reason: Hypoglycemia Protocol Stop: 12/20/19 22:21 Glucose (Dex4 Glucose) 4 - 8 tabs PO UD PRN; Protocol PRN Reason: Hypoglycemia Protocol Stop: 12/20/19 22:21 Glucose (Glucose 40%) 15 - 30 gm PO UD PRN; Protocol PRN Reason: Hypoglycemia Protocol Stop: 12/20/19 22:21 Hydromorphone HCl (Dilaudid) 0.25 mg IV Q3H PRN PRN Reason: Pain Stop: 12/05/19 01:06 Last Admin: 11/21/19 01:38 Dose: 0.25 mg Documented by: Pantoprazole Sodium 40 mg/ (Dextrose) 100 mls @ 20 mls/hr IV Q5H [facility] Stop: 12/20/19 18:59 Last Admin: 11/21/19 05:36 Dose: 20 mls/hr Documented by: Parenteral Electrolytes (Normosol-R) 1,000 mls @ 75 mls/hr IV .[id number] [facility] Stop: 12/20/19 21:14 Last Admin: 11/20/19 21:37 Dose: 75 mls/hr Documented by: Promethazine HCl 12.5 mg/ (Sodium Chloride) 50.5 mls @ 202 mls/hr IV Q6H PRN PRN Reason: Nausea And Vomiting Stop: 12/20/19 22:21 Metronidazole (Flagyl) 500 mg in 100 mls @ 100 mls/hr IV Q8H [facility] Stop: 11/30/19 22:59 Last Infusion: 11/21/19 08:51 Dose: Infused Documented by: Cefepime HCl 1,000 mg/ Syringe 11.3 mls @ 5.5 mls/min IV Q24H [facility]; Protocol Stop: 12/01/19 22:59 Insulin Aspart (Novolog Flexpen) 0 units SC ACHS [facility] Stop: 12/20/19 22:21 Last Admin: 11/21/19 08:07 Dose: Not Given Documented by: Levothyroxine Sodium (Synthroid) 75 mcg PO DAILYBB [facility] Stop: 12/21/19 06:29 Last Admin: 11/21/19 05:36 Dose: Not Given Documented by: Miscellaneous (Carbohydrates For Hypoglycemia) 15 - 30 gm PO UD PRN PRN Reason: Hypoglycemia Protocol Stop: 12/20/19 22:21 Miscellaneous Information (Cefepime Consult Active) 1 ea N/A UD PRN PRN Reason: Consult Stop: 12/20/19 23:27 Simvastatin (Zocor) 20 mg PO HS [facility] Stop: 12/21/19 20:59 Tamsulosin HCl (Flomax) 0.4 mg PO QPM [facility] Stop: 12/21/19 20:59 Thiamine HCl (Vitamin B-1) 100 mg PO BIDM [facility] Stop: 12/21/19 07:59 Last Admin: 11/21/19 07:39 Dose: Not Given Documented by: Tramadol HCl (Ultram) 25 mg PO Q4H PRN PRN Reason: Pain Stop: 12/20/19 22:21
[2019-11-21] MEDS ORDERED: SODIUM CHLORIDE 0.9% 250 ML IV PRN (09:44)
--- NOTE | 2019-11-21 09:47 | Gastrointestinal Consultation ---
Date of Consultation November 21, 2019 Assessment & Plan (1) Colitis: (2) GI bleed: (3) Anemia: 1. Continue IV PPI and antibiotics as prescribed. 2. Continue supportive management. 3. Await surgical input. 4. No plan for invasive GI work up at this time as concern for colonic ischemia as possible etiology for bleeding. Thank you for allowing us to participate in the care of this patient. If you have have questions or concerns, please contact [phone] or [phone]. Supervising Physician Co-Signing Physician Notes Agree with CATHIE Boyle as above Abd: Soft, NT, ND, +BS Continue current therapy and supportive care No plans for invasive workup at this time. History of Present Illness Reason for Consultation: GIB Requesting Physician: Dr. Isidro Attending Physician: Jamshid Cardenas MD History of Present Illness Patient is a 88 year-old male with a history of CHF, CAD/CVA, HTN HLD, NHL, prostate cancer and hypothyroidism currently residing at [facility] transported to the hospital via EMS due to symptoms of hematemesis and rectal bleeding. The patient is unable to provide any history but from review of records appears he did have a H&H of 11.5/36.3 but has dropped to 9.4 and 29.8 today. Patient did have a nonenhanced CT a/p which demonstrated a nonspecific colitis not consistent with diverticulitis but most notable in the left colon. He was heme positive. Patient has been started on IV antibiotics and surgery has been consulted. Allergies Allergy/AdvReac Type Severity Reaction Status Date / Time Penicillins Allergy Intermediate Hives Verified 11/20/19 18:39 sulfamethoxazole Allergy Mild poss Verified 11/21/19 04:02 [From Bactrim] vasculitic rash trimethoprim [From Bactrim] Allergy Mild poss Verified 11/21/19 04:02 vasculitic rash Home Medications Home Medications Medication Instructions Recorded Confirmed Type cholecalciferol (vitamin D3) 1,000 units PO QAM 07/26/18 11/20/19 History [Vitamin D3] folic acid 1 mg PO QAM 07/26/18 11/20/19 History levothyroxine 75 mcg PO DAILYBB 07/26/18 11/20/19 History simvastatin 20 mg PO HS 07/26/18 11/20/19 History tamsulosin 0.4 mg PO QPM 07/26/18 11/20/19 History polyvinyl alcohol [Artificial 2 drp OPB QID 04/02/19 11/20/19 History Tears (polyvin alc)] acetaminophen 500 mg tablet 500 mg PO Q4H PRN #30 tab 04/21/19 11/20/19 Rx famotidine 20 mg PO HS 11/20/19 11/20/19 History ferrous sulfate 325 mg PO BID17 11/20/19 11/20/19 History food supplemt, lactose-reduced 1 ea PO BIDM 11/20/19 11/20/19 History [Boost] loratadine [Claritin] 10 mg PO HS 11/20/19 11/20/19 History thiamine HCl (vitamin B1) [Vitamin 100 mg PO BIDM 11/20/19 11/20/19 History B-1] Patient History Medical History Anemia (Acute) CAD (coronary artery disease) (Chronic) CHF (congestive heart failure) (Chronic) Cystitis (Chronic) Diverticulitis (Resolved) DVT (deep venous thrombosis) (Chronic ~02/16/14) Encephalopathy (Resolved) Hematuria, gross (Acute) HTN (hypertension) (Chronic) Hyperlipidemia (Acute) Hypertension (Acute) Hypothyroid (Chronic) NSTEMI (non-ST elevated myocardial infarction) (Resolved) Pneumonia (Resolved) Pressure ulcer (Acute) Prostate CA (Resolved) Prostate cancer (Resolved ~10/1983) Rhabdomyolysis (Resolved) SDH (subdural hematoma) TIA (transient ischemic attack) (Resolved) Urinary tract infection (Resolved) Surgical History S/P hernia repair (Resolved) Social History Preferred Language: Spanish Communication Ability: Impaired Visual Impairment: Diminished Hearing Ability: Hard of Hearing Beliefs That Will Affect Care: None marital status: Current Living Situation: Jail Current Living Situation Comment: PREVIOUSLY LIVED ALONE, WENT TO [facility] POST HOSPITALIZATION current occupational status: retired 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 Feels Safe at Home: Declines to Answer Smoking Status: Unknown if ever smoked Hx Alcohol Use: No Hx Substance Use: No Review of Systems Review of Systems: Unobtainable due to cognitive status Physical Exam Constitutional: WD/WN, vitals as above Eyes: EOM intact bilaterally Neck: normal visual inspection Respiratory: normal respiratory effort Auscultation: + diminished lung sounds Cardiovascular: Rate/Rhythm: regular rate and regular rhythm Gastrointestinal (Abdomen): Inspection/Auscultation: abdomen normal to inspection and normal bowel sounds Percussion/Palpation: + abdomen tender (lower abdomen) and abdomen soft Musculoskeletal: Extremities: + petechiae (bilateral lower extremity edema) Skin: warm and dry Psychiatric: Eye Contact: + fair eye contact Results & Data ([facility]) Vital Signs (Past 12 Hours) Vital Signs Temp Pulse Pulse Resp BP Pulse Ox 11/21/19 07:00 36.3 C L 69 17 100/58 L 97 11/21/19 05:00 36.7 C 11/21/19 04:30 36.2 C L 11/21/19 03:25 36.1 C L 65 16 111/60 96 11/21/19 03:13 35.5 C L 11/21/19 02:43 35.3 C L 11/21/19 02:14 62 11/21/19 02:00 35.3 C L 11/21/19 01:30 34.8 C L 11/21/19 01:00 34.9 C L 73 20 107/67 95 11/21/19 00:52 34.8 C L Laboratory Results Abnormal lab results 11/20/19 11/20/19 11/20/19 Range/Units 18:22 18:22 18:22 WBC 12.91 H (4.8-10.8) K/uL RBC 3.99 L (4.7-6.1) M/uL Hgb 11.5 L (14.0-18.0) g/dL Hct 36.3 L (42-52) % MCHC 31.7 L (32-36) g/dL RDW Std Deviation 53.6 H (36.4-46.3) fL RDW Coeff of Maite 16.3 H (11.5-14.5) % MPV 11.2 H (7.4-10.4) fL Immature Gran # (Auto) 0.08 H (0.00-0.02) K/uL Neut # (Auto) 10.66 H (1.4-6.5) K/uL [place] # (Auto) 0.79 H (0.11-0.59) K/uL PT 14.0 H (9.0-12.0) Seconds INR 1.4 H (0.9-1.1) BUN (7-18) mg/dl Creatinine (0.6-1.4) mg/dl BUN/Creatinine Ratio (10-20) Glucose (70-99) mg/dl POC Glucose (70-99) mg/dl Calcium (8.5-10.1) mg/dl Alkaline Phosphatase (45-117) U/L Total Protein (6.4-8.2) gm/dl Albumin (3.4-5.0) gm/dl Globulin (2.5-4.0) gm/dl Albumin/Globulin Ratio (0.9-2) Lipase (73-393) U/L TSH (0.300-4.500) uIu/ml Urine Protein (Negative) Urine Bacteria (Auto) (Negative) Crossmatch See Detail 11/20/19 11/20/19 11/20/19 Range/Units 18:22 22:53 22:53 WBC (4.8-10.8) K/uL RBC (4.7-6.1) M/uL Hgb 9.7 L (14.0-18.0) g/dL Hct 29.9 L (42-52) % MCHC (32-36) g/dL RDW Std Deviation (36.4-46.3) fL RDW Coeff of Maite (11.5-14.5) % MPV (7.4-10.4) fL Immature Gran # (Auto) (0.00-0.02) K/uL Neut # (Auto) (1.4-6.5) K/uL [place] # (Auto) (0.11-0.59) K/uL PT (9.0-12.0) Seconds INR (0.9-1.1) BUN 32 H 32 H (7-18) mg/dl Creatinine 2.11 H 1.74 H D (0.6-1.4) mg/dl BUN/Creatinine Ratio (10-20) Glucose 143 H 139 H (70-99) mg/dl POC Glucose (70-99) mg/dl Calcium 8.3 L (8.5-10.1) mg/dl Alkaline Phosphatase 135 H (45-117) U/L Total Protein 8.3 H (6.4-8.2) gm/dl Albumin 1.9 L (3.4-5.0) gm/dl Globulin 6.4 H (2.5-4.0) gm/dl Albumin/Globulin Ratio 0.3 L (0.9-2) Lipase 41 L (73-393) U/L TSH 6.750 H (0.300-4.500) uIu/ml Urine Protein (Negative) Urine Bacteria (Auto) (Negative) Crossmatch 11/20/19 11/21/19 11/21/19 Range/Units 23:02 00:10 05:37 WBC 12.31 H (4.8-10.8) K/uL RBC 3.28 L (4.7-6.1) M/uL Hgb 9.4 L (14.0-18.0) g/dL Hct 29.8 L (42-52) % MCHC 31.5 L (32-36) g/dL RDW Std Deviation 53.7 H (36.4-46.3) fL RDW Coeff of Maite 16.3 H (11.5-14.5) % MPV 10.6 H (7.4-10.4) fL Immature Gran # (Auto) 0.05 H (0.00-0.02) K/uL Neut # (Auto) 10.47 H (1.4-6.5) K/uL [place] # (Auto) (0.11-0.59) K/uL PT (9.0-12.0) Seconds INR (0.9-1.1) BUN (7-18) mg/dl Creatinine (0.6-1.4) mg/dl BUN/Creatinine Ratio (10-20) Glucose (70-99) mg/dl POC Glucose 146 H (70-99) mg/dl Calcium (8.5-10.1) mg/dl Alkaline Phosphatase (45-117) U/L Total Protein (6.4-8.2) gm/dl Albumin (3.4-5.0) gm/dl Globulin (2.5-4.0) gm/dl Albumin/Globulin Ratio (0.9-2) Lipase (73-393) U/L TSH (0.300-4.500) uIu/ml Urine Protein Trace H (Negative) Urine Bacteria (Auto) 2+ H (Negative) Crossmatch 11/21/19 11/21/19 Range/Units 05:37 07:54 WBC (4.8-10.8) K/uL RBC (4.7-6.1) M/uL Hgb (14.0-18.0) g/dL Hct (42-52) % MCHC (32-36) g/dL RDW Std Deviation (36.4-46.3) fL RDW Coeff of Maite (11.5-14.5) % MPV (7.4-10.4) fL Immature Gran # (Auto) (0.00-0.02) K/uL Neut # (Auto) (1.4-6.5) K/uL [place] # (Auto) (0.11-0.59) K/uL PT (9.0-12.0) Seconds INR (0.9-1.1) BUN 33 H (7-18) mg/dl Creatinine 1.63 H (0.6-1.4) mg/dl BUN/Creatinine Ratio 20.1 H (10-20) Glucose 135 H (70-99) mg/dl POC Glucose 165 H (70-99) mg/dl Calcium 7.8 L (8.5-10.1) mg/dl Alkaline Phosphatase (45-117) U/L Total Protein (6.4-8.2) gm/dl Albumin (3.4-5.0) gm/dl Globulin (2.5-4.0) gm/dl Albumin/Globulin Ratio (0.9-2) Lipase (73-393) U/L TSH (0.300-4.500) uIu/ml Urine Protein (Negative) Urine Bacteria (Auto) (Negative) Crossmatch PG Care Time/CCT Total # of Minutes Spent Total Time Spent with Patient: Total time spent is greater than 50% in coordination of care (as documented) at patient's floor/unit and/or counseling patient: Coding Level of Care Code 82444 Initial Inpt Care Lvl 3 Diagnoses Colitis K52.9 GI bleed K92.2 Anemia D64.9 Anemia type: unspecified type (1) Anemia Anemia type: unspecified type Qualified Code(s): D64.9 - Anemia, unspecified
[2019-11-21 11:56] LABS: Hematocrit (blood only) 28.1 % (42-52)
[2019-11-21] MEDS: NORMOSOL-R 1,000 ML IV SCH (14:07)
--- NOTE | 2019-11-21 14:23 | Palliative Care Consultation ---
Date of Consultation November 21, 2019 Assessment & Plan (1) Goals of care, counseling/discussion: -88 year old male patient with PMH advanced dementia, CAD, CHF, htn, HLD, NSTEMI and others, presented from [facility] with c/o black stools. In ED, stools were heme-positive, H/H stable. Creatinine was elevated at 1.74, so CT abd/pelvis without contrast was performed. CT showed colitis and possibility of ischemic bowel. Surgery was consulted-- due to pateint's advanced dementia, frailty and other comorbidities, patient is deemed a poor surgical candidate. Surgeon spoke to patient's daughter, Barrett Gonzalez in [place], who stated that she really does not want invasive surgery for her father and just wants him to be comfortable. GI was then consulted but they will defer any sort of endoscopy at this time due to the suspicion of ischemic bowel. Palliative care is consulted to discuss goals of care. -Met with patient in room 252. He did wake up for me and was able to converse somewhat. His speech is weak and somewhat garbled at this time due to his condition and dry mouth. However, patient told me his name and his daughter's name. He told me his daughter lives in [place] and he thought he was in "[facility]." Patient stated it was the year 2018, could not tell me the month. I did explain what was happening to him and why he is in the hospital. Patient asked, "So how do I approach this?" I explained that all he needs to do is let us know when he is in pain or uncomfortable. Patient not fully able to understand the situation, did not discuss full goals of care with him. -Called patient's daughter/POA Barrett Gonzalez who lives in [place]. Barrett fully understands what has happened since coming to the hospital. We discussed surgery-- she absolutely does not want invasive surgery and understands that he is a poor surgical candidate. Barrett also understands that if this is in fact ischemic bowel, it could be life-threatening and could lead to his demise. We discussed that GI does not think scoping is appropriate at this time-- Barrett is okay with this and agrees. She stated, "I just thought if there w as a way to go in and cauterize the bleeding, that I would be okay with that." However, if patient stabilizes/improves, she would consider further testing at a later time if it is going to be beneficial/necessary for patient. Again, overall goal is for comfort and quality of life. -For now, plan is to continue supportive care with IVF and abx. We will reassess each day and see if patient is the same, better or worse and discuss what to do from there. If patient is worsening and/or imminently dying, Barrett would want to convert to comfort measures only. Barrett stated she DOES NOT WANT ESCALATION IN CARE-- no ICU. If his hgb slowly drops and he needs a blood transfusion, she is okay with that if he is still otherwise relatively stable and awake/comfortable. If patient stabilizes, the goal would likely be for patient to return to [facility] on comfort and/or hospice care depending on hospital course -Barrett asked about patient's prognosis. I explained that patient's vital signs are stable, his H/H is stable, his mental status is improved, no gross bleeding noted-- so at this time, it is really difficult to say. I advised her to continue holding patient's bed at [facility] until we see if he is worsening or getting better. -Patient is currently awake and comfortable-- no symptom management needs. He does have some PRN IV Dilaudid ordered if needed. -We will continue to follow. Plan to call patient's daughter Barrett again tomorrow after I see the patient to discuss his condition. (2) Colitis: (3) GI bleed: (4) MAITE (acute kidney injury): History of Present Illness Attending Physician: Jasmhid Cardenas MD History of Present Illness This 88 year old male patient with PMH advanced dementia, CAD, CHF, htn, HLD, NSTEMI and others, presented from [facility] with c/o black stools. In ED, stools were heme-positive, H/H stable. Creatinine was elevated at 1.74, so CT abd/pelvis without contrast was performed. CT showed colitis and possibility of ischemic bowel. Surgery was consulted-- due to pateint's advanced dementia, frailty and other comorbidities, patient is deemed a poor surgical candidate. Surgeon spoke to patient's daughter, Barrett Gonzalez in [place], who stated that she really does not want invasive surgery for her father and just wants him to be comfortable. GI was then consulted but they will defer any sort of endoscopy at this time due to the suspicion of ischemic bowel. Palliative care is consulted to discuss goals of care. Thank you kindly for this consult. Palliative care team will follow as needed. Allergies Allergy/AdvReac Type Severity Reaction Status Date / Time Penicillins Allergy Intermediate Hives Verified 11/20/19 18:39 sulfamethoxazole Allergy Mild poss Verified 11/21/19 04:02 [From Bactrim] vasculitic rash trimethoprim [From Bactrim] Allergy Mild poss Verified 11/21/19 04:02 vasculitic rash Home Medications Home Medications Medication Instructions Recorded Confirmed Type cholecalciferol (vitamin D3) 1,000 units PO QAM 07/26/18 11/20/19 History [Vitamin D3] folic acid 1 mg PO QAM 07/26/18 11/20/19 History levothyroxine 75 mcg PO DAILYBB 07/26/18 11/20/19 History simvastatin 20 mg PO HS 07/26/18 11/20/19 History tamsulosin 0.4 mg PO QPM 07/26/18 11/20/19 History polyvinyl alcohol [Artificial 2 drp OPB QID 04/02/19 11/20/19 History Tears (polyvin alc)] acetaminophen 500 mg tablet 500 mg PO Q4H PRN #30 tab 04/21/19 11/20/19 Rx famotidine 20 mg PO HS 11/20/19 11/20/19 History ferrous sulfate 325 mg PO BID17 11/20/19 11/20/19 History food supplemt, lactose-reduced 1 ea PO BIDM 11/20/19 11/20/19 History [Boost] loratadine [Claritin] 10 mg PO HS 11/20/19 11/20/19 History thiamine HCl (vitamin B1) [Vitamin 100 mg PO BIDM 11/20/19 11/20/19 History B-1] Patient History Medical History Anemia (Acute) CAD (coronary artery disease) (Chronic) CHF (congestive heart failure) (Chronic) Cystitis (Chronic) Diverticulitis (Resolved) DVT (deep venous thrombosis) (Chronic ~02/16/14) Encephalopathy (Resolved) Hematuria, gross (Acute) HTN (hypertension) (Chronic) Hyperlipidemia (Acute) Hypertension (Acute) Hypothyroid (Chronic) NSTEMI (non-ST elevated myocardial infarction) (Resolved) Pneumonia (Resolved) Pressure ulcer (Acute) Prostate CA (Resolved) Prostate cancer (Resolved ~10/1983) Rhabdomyolysis (Resolved) SDH (subdural hematoma) TIA (transient ischemic attack) (Resolved) Urinary tract infection (Resolved) Surgical History S/P hernia repair (Resolved) Social History Preferred Language: Croatian Communication Ability: Impaired Visual Impairment: Diminished Hearing Ability: Hard of Hearing Beliefs That Will Affect Care: None marital status: Current Living Situation: Detention Current Living Situation Comment: PREVIOUSLY LIVED ALONE, WENT TO [place] POST HOSPITALIZATION current occupational status: retired 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 Feels Safe at Home: Declines to Answer Smoking Status: Unknown if ever smoked Hx Alcohol Use: No Hx Substance Use: No Review of Systems Respiratory: no cough Cardiovascular: no chest pain Gastrointestinal: + melena (reported by nursing); no abdominal pain, no nausea and no vomiting Physical Exam Constitutional: + thin and + frail appearing; no acute distress Eyes: PERRL (pupils 2mm bilaterally) Neck: normal visual inspection Respiratory: normal respiratory effort; no labored breathing room air Cardiovascular: Rate/Rhythm: regular rate and regular rhythm Extremities: no edema Gastrointestinal (Abdomen): Percussion/Palpation: abdomen soft; abdomen nontender Skin: + pallor Neurologic: moves all extremities and awake Psychiatric: Orientation: oriented to person; + not oriented to place and + not oriented to time Insight: + poor insight Results & Data Vital Signs (Past 12 Hours) Vital Signs Temp Pulse Resp BP Pulse Ox 11/21/19 12:29 36.1 C L 11/21/19 12:17 35.3 C L 63 18 99/49 L 96 11/21/19 07:00 36.3 C L 69 17 100/58 L 97 11/21/19 05:00 36.7 C 11/21/19 04:30 36.2 C L 11/21/19 03:25 36.1 C L 65 16 111/60 96 11/21/19 03:13 35.5 C L 11/21/19 02:43 35.3 C L Coding Level of Care Code 78932 Inpt Consult Level 3 Diagnoses Goals of care, counseling/discussion Z71.89 Colitis K52.9 GI bleed K92.2 MAITE (acute kidney injury) N17.9 Time Spent (min) 70 Time Spent Midlevel 70 minutes with >50% of the time spent at bedside with patient and on phone with daughter discussing condition and GOC.
[2019-11-21 18:16] LABS: Hematocrit (blood only) 28.7 % (42-52); Hemoglobin 9.1 g/dL (14.0-18.0)
[2019-11-21] MEDS: TAMSULOSIN HCL 0.4 MG CAP PO SCH (21:07)
[2019-11-21] MEDS: SIMVASTATIN 20 MG TAB PO SCH (21:07)
[2019-11-21] MEDS: PANTOprazole 40 MG in SYRINGE 0 ML IV SCH (21:07)
[2019-11-21] MEDS ORDERED: CEFEPIME 1,000 MG in SYRINGE 0 ML IV SCH (23:00)
[2019-11-22] MEDS: NORMOSOL-R 1,000 ML IV SCH ×2 (05:05→15:08)
--- NOTE | 2019-11-22 05:47 | Electrocardiogram Report ---
Test Reason : Blood Pressure : / mmHG Vent. Rate : 071 BPM Atrial Rate : 071 BPM P-R Int : 132 ms QRS Dur : 094 ms QT Int : 402 ms P-R-T Axes : 097 -13 093 degrees QTc Int : 436 ms Poor data quality, interpretation may be adversely affected Sinus rhythm with Premature atrial complexes Nonspecific T wave abnormality Abnormal ECG When compared with ECG of 02-APR-2019 21:31, Premature ventricular complexes are no longer Present T wave inversion no longer evident in Anterior leads Confirmed by Kedar Rondon ([id number]) on 11/22/2019 5:46:58 AM Referred By: Laine powell [facility] Confirmed By:Kedar Rondon
[2019-11-22] MEDS: LEVOTHYROXINE SODIUM 75 MCG TABLET PO SCH (06:07)
[2019-11-22 06:38] LABS: Hematocrit (blood only) 28.9 % (42-52); Hemoglobin 9.2 g/dL (14.0-18.0); Mean Corpuscular Hemoglobin 28.8 pg (25-34); Mean Corpuscular Hgb Conc 31.8 g/dL (32-36); Mean Corpuscular Volume 90.3 fL (80-100); Mean Platelet Volume 10.4 fL (7.4-10.4); Platelet Count 182 K/uL (130-400); RDW Coefficient of Variation 16.3 % (11.5-14.5); RDW Standard Deviation 53.2 fL (36.4-46.3); White Blood Count 16.68 K/uL (4.8-10.8)
[2019-11-22 07:08] LABS: BUN Creatinine Ratio 22.3 (10-20); Calcium 7.6 mg/dl (8.5-10.1); Creatinine Clr Calc Pharmacy 43.8 ml/min; Est GFR (African American) 65.9; Est GFR (Non-African American) 56.9; Magnesium 1.8 mg/dl (1.8-2.4); Potassium 3.8 mmol/L (3.5-5.1)
[2019-11-22] MEDS: INSULIN ASPART 100 UNITS/ML 3 ML PEN SC SCH ×4 (07:50→20:29)
[2019-11-22] MEDS: PANTOprazole 40 MG in SYRINGE 0 ML IV SCH ×2 (08:03→20:21)
[2019-11-22] MEDS: FOLIC ACID 1 MG TAB PO SCH (08:03)
[2019-11-22] MEDS: THIAMINE HCL 100 MG TAB PO SCH ×2 (08:03→16:19)
[2019-11-22] MEDS: metroNIDAZOLE 500 MG/100 ML BAG IV SCH ×2 (08:03→16:19)
--- NOTE | 2019-11-22 09:31 | Palliative Care Progress Note ---
Date of Service November 22, 2019 Assessment & Plan (1) Goals of care, counseling/discussion: -Met with Mr. Gonzalez in room 252. -Patient was sitting upright in his hospital bed in no apparent distress. -He was awake, alert, oriented to person and place. Patient was able to tell me his daughters name and that she lived in [place]. When asked what brought him into the hospital, he said "well, something was blocked up in here" (pointing to stomach). -He was unable to recall conversation with palliative provider yesterday. -I talked with the patients daughter over the phone, Barrett Gonzalez ([phone]) who lives in [place]. She agrees that patient is a poor surgical candidate an d continues to agree she does NOT want surgery. -Confirmed that overall goal is comfort, BUT she stated that if Brigido improves to where additional testing like a CT scan with IV contrast could be performed she would like to know for sure if they are dealing with a life-threatening condition (ischemic bowel) or a colitis that likely will improve with IV abx. I said I would pass this along to Dr. Cardenas. -Confirmed that she would like to continue with current treatment plan including IVF and IV antibiotics, without escalation of care. -Appears patient is returning to baseline status, but did advise that his WBC continues to trend upward, 12.31--> 16.68. -If patient starts to worsen and/or imminently dying, Barrett would want to convert to comfort measures only. If his hgb slowly drops and he needs a blood transfusion, she is okay with that if he is still otherwise relatively stable and awake/comfortable. If patient stabilizes, the goal would likely be for patient to return to [facility] on comfort and/or hospice care depending on hospital course. -She plans to come visit her Dad in the next week or so, unless he declines more rapidly. -Barrett asked about patient's prognosis again today. I explained that patient's vital signs are stable, his H/H is stable, his mental status is improved, no gross bleeding noted-- so at this time, it is really difficult to say, especially without a definitive diagnosis. I advised her to continue holding patient's bed at [facility] until we see if he is worsening or getting better. Explained after talking with Dr. Cardenas, likely an additional 1-2 days inpatient stay. -I ordered PT/OT for eval and treat for possible skillable services upon eventual return to [facility]. -I did discuss a POLST form with Barrett over the phone and explained it could be helpful to have prior to his return to [facility]. I will email her a copy of a POLST form and she will revert with a scanned completed copy. -No symptom management needs at this time. He does have some PRN IV Dilaudid ordered if needed. -We will continue to follow. -PPS: 30% (2) Colitis: (3) GI bleed: (4) MAITE (acute kidney injury): Subjective Pt improved from yesterday Brigido able to tell me he was in the "[facility]" and that his daughters name is Barrett. Pt Hgb 9.1 today, no PRBC ordered as stabilizing. Renal function improving. Creatinine 1.15, down from 2.11. Pt denies pain. Please see A/P for further details. Review of Systems Review of Systems: General: (-) pain HEENT: (-) visual changes, GUERRERO, dizziness. (-) difficulty swallowing CV: (-) chest pain, palpitations Resp: (-) SOB GI: (-) abdominal pain, (-) N/V : (-) dysuria Physical Exam Constitutional: + thin and + frail appearing; no acute distress Eyes: + pinpoint pupils (1mm b/l) Neck: normal visual inspection Respiratory: normal respiratory effort; no labored breathing Cardiovascular: Rate/Rhythm: regular rate and regular rhythm Extremities: no edema Gastrointestinal (Abdomen): Percussion/Palpation: abdomen soft; abdomen nontender Skin: + pallor diffuse petichial rash bilateral below knees extending on shins to, and including, feet. Neurologic: moves all extremities and awake Psychiatric: Orientation: oriented to person, oriented to place and cooperative; + not oriented to time Insight: + poor insight Results & Data Vital Signs (Past 12 Hours) Vital Signs Temp Pulse Pulse Resp BP Pulse Ox 11/22/19 07:19 36.1 C L 70 18 129/63 97 11/22/19 04:52 36.3 C L 68 20 115/65 98 11/22/19 02:32 65 11/21/19 22:59 35.7 C L 62 18 116/71 98 PG Care Time/CCT Total # of Minutes Spent Total Time Spent with Patient: Total time spent is greater than 50% in blood bank coordinator rdination of care (as documented) at patient's floor/unit and/or counseling patient: 35 Coding Level of Care Code 53251 Subseq Hosp Care Lvl 3 Diagnoses Goals of care, counseling/discussion Z71.89 Colitis K52.9 GI bleed K92.2 MAITE (acute kidney injury) N17.9 Time Spent (min) 35 Time Spent Midlevel Total time spent 35 minutes with > 50% of that time spent assessing the patient, discussing goals of care and POLST form with patients daughter on the phone.
--- NOTE | 2019-11-22 10:17 | Surgery Progress Note ---
Date of Service November 22, 2019 Assessment & Plan (1) GI bleed: 88 yo male presented from [facility] with hematochezia, rectal bleeding and melena for 2 days with decreased mentation compared to baseline. Hemoglobin 9.7. Leukcoytosis of 12.9K. CT scan with nonspecific colitis of left colon with portal venous gas and perigastric venous gas however no pneumatosis intestinalis or free air. Leukocytosis increased to 16K today however afebrile c. diff negative Abdomen is soft, nondistended, nontender, no rigidity or guarding Patient more alert today, pleasant and having no abdominal pain. Vitals are stable. Hemodynamically stable Hemoglobin stable around 9 Plan: No acute surgical intervention required at this time as there is no acute abdomen. Patients family/daughter/POA wishing against any surgical intervention Patient clinically improved today more alert, not obtunded, abdomen benign Can trial clear liquids , advised to go slow Continue IV Abx Continue IV fluids monitor H&H every 6hours Continue PPI drip Continue medical management (2) Colitis: nonspecific colitis on CT with questional ischemic colitis given portal venous gas. No free air. plan as above Dr. Hartman was present during my examination and agrees with above. Subjective subjectively much better today not as obtunded alert answers questions denies of any abdominal pain, nausea or vomiting + hungry Physical Exam Constitutional: WD/WN, vitals as above no acute distress elderly male, no acute distress, pleasant Respiratory: normal respiratory effort; no respiratory distress Gastrointestinal (Abdomen): Inspection/Auscultation: abdomen normal to inspection; abdomen not distended Percussion/Palpation: abdomen soft; abdomen nontender, no guarding and abdomen not rigid Skin: no rashes, warm and dry Psychiatric: Orientation: alert Results & Data Vital Signs (Past 12 Hours) Vital Signs Temp Pulse Pulse Resp BP Pulse Ox 11/22/19 07:19 36.1 C L 70 18 129/63 97 11/22/19 04:52 36.3 C L 68 20 115/65 98 11/22/19 02:32 65 11/21/19 22:59 35.7 C L 62 18 116/71 98 Laboratory Results 11/22/19 11/22/19 11/22/19 Range/Units 05:33 05:33 00:13 WBC 16.68 H (4.8-10.8) K/uL RBC 3.20 L (4.7-6.1) M/uL Hgb 9.2 L (14.0-18.0) g/dL Hct 28.9 L (42-52) % MCV 90.3 (80-100) fL MCH 28.8 (25-34) pg MCHC 31.8 L (32-36) g/dL RDW Std Deviation 53.2 H (36.4-46.3) fL RDW Coeff of Maite 16.3 H (11.5-14.5) % Plt Count 182 (130-400) K/uL MPV 10.4 (7.4-10.4) fL Sodium 139 (136-145) mmol/L Potassium 3.8 (3.5-5.1) mmol/L Chloride 107 (98-107) mmol/L Carbon Dioxide 27 (21-32) mmol/L Anion Gap 5.0 (3-11) BUN 26 H (7-18) mg/dl Creatinine 1.15 D (0.6-1.4) mg/dl Est Cr Clr Drug Dosing 43.8 ml/min Est GFR ( Amer) 65.9 Est GFR (Non-Af Amer) 56.9 BUN/Creatinine Ratio 22.3 H (10-20) Glucose 98 (70-99) mg/dl POC Glucose 107 H (70-99) mg/dl Calcium 7.6 L (8.5-10.1) mg/dl Magnesium 1.8 (1.8-2.4) mg/dl 11/21/19 11/21/19 11/21/19 Range/Units 18:33 17:47 11:43 WBC (4.8-10.8) K/uL RBC (4.7-6.1) M/uL Hgb 9.1 L 9.0 L (14.0-18.0) g/dL Hct 28.7 L 28.1 L (42-52) % MCV (80-100) fL MCH (25-34) pg MCHC (32-36) g/dL RDW Std Deviation (36.4-46.3) fL RDW Coeff of Maite (11.5-14.5) % Plt Count (130-400) K/uL MPV (7.4-10.4) fL Sodium (136-145) mmol/L Potassium (3.5-5.1) mmol/L Chloride (98-107) mmol/L Carbon Dioxide (21-32) mmol/L Anion Gap (3-11) BUN (7-18) mg/dl Creatinine (0.6-1.4) mg/dl Est Cr Clr Drug Dosing ml/min Est GFR ( Amer) Est GFR (Non-Af Amer) BUN/Creatinine Ratio (10-20) Glucose (70-99) mg/dl POC Glucose 122 H (70-99) mg/dl Calcium (8.5-10.1) mg/dl Magnesium (1.8-2.4) mg/dl 11/21/19 Range/Units 11:28 WBC (4.8-10.8) K/uL RBC (4.7-6.1) M/uL Hgb (14.0-18.0) g/dL Hct (42-52) % MCV (80-100) fL MCH (25-34) pg MCHC (32-36) g/dL RDW Std Deviation (36.4-46.3) fL RDW Coeff of Maite (11.5-14.5) % Plt Count (130-400) K/uL MPV (7.4-10.4) fL Sodium (136-145) mmol/L Potassium (3.5-5.1) mmol/L Chloride (98-107) mmol/L Carbon Dioxide (21-32) mmol/L Anion Gap (3-11) BUN (7-18) mg/dl Creatinine (0.6-1.4) mg/dl Est Cr Clr Drug Dosing ml/min Est GFR ( Amer) Est GFR (Non-Af Amer) BUN/Creatinine Ratio (10-20) Glucose (70-99) mg/dl POC Glucose 115 H (70-99) mg/dl Calcium (8.5-10.1) mg/dl Magnesium (1.8-2.4) mg/dl
[2019-11-22] MEDS ORDERED: CEFEPIME 2,000 MG in SYRINGE 7.5 ML IV SCH (18:00)
[2019-11-22] MEDS: TAMSULOSIN HCL 0.4 MG CAP PO SCH (20:21)
[2019-11-22] MEDS: SIMVASTATIN 20 MG TAB PO SCH (20:21)
[2019-11-23] MEDS ORDERED: NORMOSOL-R 1,000 ML IV ONE (00:45)
[2019-11-23] MEDS: metroNIDAZOLE 500 MG/100 ML BAG IV SCH ×3 (01:12→16:10)
[2019-11-23] MEDS: LEVOTHYROXINE SODIUM 75 MCG TABLET PO SCH (06:07)
[2019-11-23] MEDS: THIAMINE HCL 100 MG TAB PO SCH ×2 (07:58→17:05)
[2019-11-23] MEDS: FOLIC ACID 1 MG TAB PO SCH (07:59)
[2019-11-23] MEDS: PANTOprazole 40 MG in SYRINGE 0 ML IV SCH ×2 (07:59→21:10)
[2019-11-23] MEDS: INSULIN ASPART 100 UNITS/ML 3 ML PEN SC SCH ×4 (09:03→20:13)
--- NOTE | 2019-11-23 15:11 | Hospitalist Progress Note ---
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 difficile) source Likely secondary to ischemic colitis IV PPI for UGI bleed GI consult RE U GIB-appreciate input and recommendation and subsequently signed off Cefepime, Flagyl for possible ischemic colitis Check stool C. difficile-has been negative Appreciate surgery input and recommendation: Surgery is not indicated and is not a surgical cancer candidate Clinically improving without any significant abdominal symptoms and moving bowels without any bleeding Will advance diet as tolerated We will get PT and OT evaluation ARF secondary to illness Recent UTI status post Bactrim Rx Renal function reverted to normal Encephalopathy Likely secondary to colitis, MAITE and possible UTI Urine culture grew Streptococcus species, alpha not enterococcus Generalized purpuric rash involving the lower extremities Likely secondary to to Bactrim Will observe in the hospital Will get outpatient dermatology appointment if does not improve Chronic diastolic heart failure (EF 55 to 60%, TTE 2018), patient clinically dry hx CAD/CVA as per records hypertension, stable BPH, prostate cancer status post radiation past history DVT as per records Chronic anemia, hemoglobin on admission better than baseline likely secondary to hemoconcentration New diagnosis of DM 2, outpatient hemoglobin A1c of 6.11 October 2019 ISS BG goal [id number] DVT phylaxis. SCDs RE GI bleed Code: DNR as per daughter/POA, Ms. Barrett Gonzalez, she can be contacted at [phone]. Admission and Anticipated Discharge Date Admission Date: November 20, 2019 Subjective 11/23/2019 The patient was seen and examined in medical floor He was admitted on 20 November with GI bleed suspected secondary to ischemic colitis, metabolic and colopathy, acute kidney injury and rash likely secondary to Bactrim As of today is very lethargic but denies any significant symptoms Has been moving his bowel without any abdominal distention, pain, nausea and or vomiting Review of Systems Review of Systems: Remains generally weak and lethargic without any acute distress Gastrointestinal: no abdominal pain, no bloating, no nausea and no vomiting Neurologic: + generalized weakness and + confusion (Pleasantly confused) Physical Exam Physical Exam: Lying in bed comfortably Constitutional: + ill appearing; no acute distress Eyes: PERRL, conjunctivae normal, anicteric sclerae ENMT: external ear and nose normal, oropharynx normal Neck: trachea midline, no thyromegaly Respiratory: normal respiratory effort; no respiratory distress Auscultation: + diminished lung sounds and + crackles (Minimal crackles at the bases) Cardiovascular: Rate/Rhythm: regular rate and regular rhythm Heart Sounds: + murmur Gastrointestinal (Abdomen): Inspection/Auscultation: abdomen normal to inspection and normal bowel sounds Percussion/Palpation: abdomen soft; abdom en nontender Skin: Extensive bilateral lower extremity purpuric rash Neurologic: moves all extremities Remains very weak and lethargic Lymphatic: no cervical or axillary lymphadenopathy Results & Data ([facility]) Vital Signs (Past 12 Hours) Vital Signs Temp Pulse Pulse Resp BP Pulse Ox 11/23/19 11:30 36.8 C 68 16 139/70 98 11/23/19 08:59 67 11/23/19 07:32 36.3 C L 70 16 138/68 97 11/23/19 04:00 36.3 C L 75 19 115/68 95 Medications Administered Current Inpatient Medications Acetaminophen (Tylenol) 650 mg PO Q4H PRN PRN Reason: Pain or Fever Stop: 12/20/19 22:21 Dextrose (Dextrose 50%) 25 - 50 ml IV UD PRN; Protocol PRN Reason: Hypoglycemia Protocol Stop: 12/20/19 22:21 Folic Acid (Folvite) 1 mg PO QAM [facility] Stop: 12/21/19 08:59 Last Admin: 11/23/19 07:59 Dose: 1 mg Documented by: Glucagon (Glucagen) 1 mg SQ UD PRN; Protocol PRN Reason: Hypoglycemia Protocol Stop: 12/20/19 22:21 Glucose (Dex4 Glucose) 4 - 8 tabs PO UD PRN; Protocol PRN Reason: Hypoglycemia Protocol Stop: 12/20/19 22:21 Glucose (Glucose 40%) 15 - 30 gm PO UD PRN; Protocol PRN Reason: Hypoglycemia Protocol Stop: 12/20/19 22:21 Hydromorphone HCl (Dilaudid) 0.25 mg IV Q3H PRN PRN Reason: Pain Stop: 12/05/19 01:06 Last Admin: 11/21/19 01:38 Dose: 0.25 mg Documented by: Promethazine HCl 12.5 mg/ (Sodium Chloride) 50.5 mls @ 202 mls/hr IV Q6H PRN PRN Reason: Nausea And Vomiting Stop: 12/20/19 22:21 Metronidazole (Flagyl) 500 mg in 100 mls @ 100 mls/hr IV Q8H [facility] Stop: 11/30/19 22:59 Last Infusion: 11/23/19 09:58 Dose: Infused Documented by: Pantoprazole Sodium 40 mg/ (Syringe) 10 mls @ 5 mls/min IV BID@0900,2100 [facility] Stop: 12/21/19 20:59 Last Admin: 11/23/19 07:59 Dose: 5 mls/min Documented by: Ceftriaxone Sodium 2,000 mg/ (Dextrose) 70 mls @ 140 mls/hr IV Q24H [facility]; Protocol Stop: 11/30/19 17:59 Insulin Aspart (Novolog Flexpen) 0 units SC ACHS [facility] Stop: 12/20/19 22:21 Last Admin: 11/23/19 12:32 Dose: Not Given Documented by: Levothyroxine Sodium (Synthroid) 75 mcg PO DAILYBB JAKE Stop: 12/21/19 06:29 Last Admin: 11/23/19 06:07 Dose: 75 mcg Documented by: Miscellaneous (Carbohydrates For Hypoglycemia) 15 - 30 gm PO UD PRN PRN Reason: Hypoglycemia Protocol Stop: 12/20/19 22:21 Simvastatin (Zocor) 20 mg PO HS [facility] Stop: 12/21/19 20:59 Last Admin: 11/22/19 20:21 Dose: 20 mg Documented by: Tamsulosin HCl (Flomax) 0.4 mg PO QPM JAKE Stop: 12/21/19 20:59 Last Admin: 11/22/19 20:21 Dose: 0.4 mg Documented by: Thiamine HCl (Vitamin B-1) 100 mg PO BIDM JAKE Stop: 12/21/19 07:59 Last Admin: 11/23/19 07:58 Dose: 100 mg Documented by: Tramadol HCl (Ultram) 25 mg PO Q4H PRN PRN Reason: Pain Stop: 12/20/19 22:21
[2019-11-23] MEDS ORDERED: cefTRIAXone SODIUM 2,000 MG in DEXTROSE 5% 50 ML IV SCH (18:00)
[2019-11-23] MEDS: SIMVASTATIN 20 MG TAB PO SCH (21:10)
[2019-11-23] MEDS: TAMSULOSIN HCL 0.4 MG CAP PO SCH (21:10)
[2019-11-24] MEDS: metroNIDAZOLE 500 MG/100 ML BAG IV SCH ×2 (00:43→08:02)
[2019-11-24] MEDS: LEVOTHYROXINE SODIUM 75 MCG TABLET PO SCH (06:08)
[2019-11-24 06:15] LABS: Basophils # (auto) 0.01 K/uL (0-0.2); Basophils % (auto) 0.1 %; Hematocrit (blood only) 31.3 % (42-52); Hemoglobin 9.8 g/dL (14.0-18.0); Immature Granulocytes # (auto) 0.11 K/uL (0.00-0.02); Immature Granulocytes % (auto) 0.7 %; Lymphocytes % (auto) 9.9 %; Mean Corpuscular Hemoglobin 28.5 pg (25-34); Mean Corpuscular Hgb Conc 31.3 g/dL (32-36); Mean Platelet Volume 10.3 fL (7.4-10.4); Monocytes # (auto) 1.06 K/uL (0.11-0.59); Monocytes % (auto) 6.5 %; Neutrophils # (auto) 13.46 K/uL (1.4-6.5); Neutrophils % (auto) 82.8 %; Platelet Count 170 K/uL (130-400); RDW Coefficient of Variation 16.7 % (11.5-14.5); RDW Standard Deviation 54.3 fL (36.4-46.3); Red Blood Count 3.44 M/uL (4.7-6.1); White Blood Count 16.24 K/uL (4.8-10.8)
[2019-11-24 06:58] LABS: Albumin Globulin Ratio 0.3 (0.9-2); Albumin Level 1.6 gm/dl (3.4-5.0); BUN Creatinine Ratio 15.9 (10-20); Bilirubin,Total 0.6 mg/dl (0.2-1); Calcium 7.8 mg/dl (8.5-10.1); Creatinine Clr Calc Pharmacy 59.9 ml/min; Est GFR (African American) 91.2; Est GFR (Non-African American) 78.7; Globulin 5.4 gm/dl (2.5-4.0); Magnesium 1.6 mg/dl (1.8-2.4); Phosphorus 1.9 mg/dl (2.5-4.9); Potassium 3.3 mmol/L (3.5-5.1)
[2019-11-24] MEDS: PANTOprazole 40 MG in SYRINGE 0 ML IV SCH (08:02)
[2019-11-24] MEDS: THIAMINE HCL 100 MG TAB PO SCH ×2 (08:03→17:01)
[2019-11-24] MEDS: FOLIC ACID 1 MG TAB PO SCH (08:03)
--- NOTE | 2019-11-24 08:45 | Palliative Care Progress Note ---
Date of Service November 24, 2019 Assessment & Plan (1) Goals of care, counseling/discussion: -Patient is improved. No abdominal pain, no bleeding, tolerating diet, back to baseline mental status. -WBC remain elevated at 16k. Still on abx for colitis. -Talked with patient's daughter Amador on phone several times. She is pleased that patient is improved and stable, she is fine with patient returning to [facility] once he is ready. Goal is still for comfort. Patient's daughter plans on coming here from [place] next week. Recommend someone at [facility] following up with patient's daughter to further discuss plan of care for him if this episode occurs again. Patient's daughter did complete a POLST form and emailed it to my partner, Kelsie. We will get this on patient's chart once its available. -Please contact palliative care with any further needs. Thank you. (2) Colitis: (3) GI bleed: (4) MAITE (acute kidney injury): Subjective Patient continues to improve. He is awake and at his baseline. Communicating appropriately. NO pain or discomfort. Tolerating diet well. Review of Systems Review of Systems: no cough no chest pain + melena (reported by nursing); no abdominal pain, no nausea and no vomiting no blood in bowel Physical Exam Constitutional: + thin and + frail appearing; no acute distress Eyes: PERRL (pupils 2mm bilaterally) Neck: normal visual inspection Respiratory: normal respiratory effort; no labored breathing Cardiovascular: Rate/Rhythm: regular rate and regular rhythm Extremities: no edema Gastrointestinal (Abdomen): Percussion/Palpation: abdomen soft; abdomen nontender Skin: + pallor Neurologic: moves all extremities and awake Psychiatric: Orientation: oriented to person Results & Data Vital Signs (Past 12 Hours) Vital Signs Temp Pulse Pulse Resp BP Pulse Ox 11/24/19 07:48 64 11/24/19 07:26 36.3 C L 65 18 148/81 H 97 11/24/19 04:00 36.4 C L 69 20 133/74 98 11/23/19 23:50 71 11/23/19 22:57 36.0 C L 71 18 136/72 96 Coding Level of Care Code 75998 Subseq Hosp Care Lvl 3 Diagnoses Goals of care, counseling/discussion Z71.89 Colitis K52.9 GI bleed K92.2 MAITE (acute kidney injury) N17.9 Time Spent (min) 35 Time Spent Midlevel 35 minutes with >50% of the time spent at bedside with patient and on phone with daughter/POA discussing goals and plan of care.
[2019-11-24] MEDS: INSULIN ASPART 100 UNITS/ML 3 ML PEN SC SCH ×4 (08:59→20:41)
--- NOTE | 2019-11-24 10:00 | Hospitalist Progress Note ---
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 difficile) source Likely secondary to ischemic colitis IV PPI for UGI bleed GI consult RE U GIB-appreciate input and recommendation, no endoscopies recommended at this time, subsequently signed off Cefepime, Flagyl for possible ischemic colitis Check stool C. difficile-has been negative Appreciate surgery input and recommendation: Surgery is not indicated and is not a surgical cancer candidate, discussed this w/ pt's daughter and POA Clinically improving without any significant abdominal symptoms and moving bowels without any bleeding Hgb stable >9 Will advance diet as tolerated We will get PT and OT evaluation ARF secondary to illness - Resolved Cr on admission 2.11, now down to 1.15 Recent UTI status post Bactrim Rx Renal function reverted to normal Metabolic encephalopathy Likely secondary to colitis, MAITE and possible UTI Ucltx-pending Generalized purpuric rash involving the lower extremities Likely secondary to to Bactrim Will observe in the hospital Will get outpatient dermatology appointment if does not improve Chronic diastolic heart failure (EF 55 to 60%, TTE 2018), patient clinically dry hx CAD/CVA as per records hypertension, stable BPH, prostate cancer status post radiation past history DVT as per records Chronic anemia, hemoglobin on admission better than baseline likely secondary to hemoconcentration New diagnosis of DM 2, outpatient hemoglobin A1c of 6.11 October 2019 ISS BG goal [id number] DVT phylaxis. SCDs RE GI bleed Code: DNR as per daughter/POA, Ms. Barrett Gonzalez, she can be contacted at [phone]. Admission and Anticipated Discharge Date Admission Date: November 20, 2019 Subjective Pt is sitting up in bed in NAD, able to communicate, not always answers appropriately though, this seems to be his baseline (after checking w/ juniper's caregivers and pt's daughter). Reportedly had small brown stool. No gross blood noted, Vital signs stable, Hgb, stable. Pt is thirsty, helped him to have some water. Pt denies any fever, chills, chest pain, shortness of breath, abd. pain, nausea or vomiting. Review of Systems Review of Systems: Remains generally weak without any acute distress Constitutional: no fever and no chills Respiratory: no cough and no dyspnea Cardiovascular: no chest pain and no palpitations Gastrointestinal: no abdominal pain, no hematemesis (since admission) and no blood in stools (since admission) Neurologic: + generalized weakness and + confusion (Pleasantly confused) Physical Exam Physical Exam: GENERAL: elderly male somnolent but arousable,in no respiratory distress HEENT: NC/AT, Pale palpebral conjunctivae, no ptosis, dry buccal mucosa, dark dry blood in mouth NECK : Supple, no tenderness CHEST : Decreased breath sounds, CTAB HEART : RRR, no obvious murmurs ABDOMEN: positive bowel sounds, soft,nondistended, tenderness on palpation at LLQ EXTREMITIES : Petechial rash both lower extremities and hands, no LE swelling/tenderness, no other conspicuous deformities noted SKIN: Pallor , warm NEUROLOGIC/PSYCH : somnolent but arousable , no facial asymmetry, moves extremities spont., not oriented and does not answer all questions appropriately Results & Data ([facility]) Vital Signs (Past 12 Hours) reviewed Laboratory Results reviewed Medications Administered reviewed
[2019-11-24] MEDS ORDERED: POTASSIUM CHLORIDE PWD 20 MEQ PACK PO ONE (10:45)
[2019-11-24] MEDS ORDERED: POTASSIUM PHOS 3 MMOL/1 ML INFUSION IV STA (11:08)
[2019-11-24] MEDS ORDERED: POTASSIUM PHOSPHATE 24 MMOL in SODIUM CHLORIDE 0.9% 500 ML IV ONE (11:30)
--- NOTE | 2019-11-24 13:33 | Hospitalist Progress Note ---
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 difficile) source Likely secondary to ischemic colitis IV PPI for UGI bleed GI consult RE U GIB-appreciate input and recommendation and subsequently signed off Cefepime, Flagyl for possible ischemic colitis Check stool C. difficile-has been negative Appreciate surgery input and recommendation: Surgery is not indicated and is not a surgical cancer candidate Clinically improving without any significant abdominal symptoms and moving bowels without any bleeding No more GI bleed-no more diarrhea, no blood in the stool Hemoglobin remains stable at 9.8 Will be transferred to [facility] this afternoon ARF secondary to illness Recent UTI status post Bactrim Rx Renal function reverted to normal Metabolic encephalopathy Likely secondary to colitis, MAITE with electrolyte imbalance and possible UTI Urine culture grew Streptococcus species, alpha not enterococcus Hypokalemia, hypomagnesemia and hypophosphatemia have been corrected We will continue supplement on discharge Generalized purpuric rash involving the lower extremities Likely secondary to to Bactrim Will observe in the hospital Realized purpuric rash involving the lower extremities have improved a lot Chronic diastolic heart failure (EF 55 to 60%, TTE 2018), patient clinically dry hx CAD/CVA as per records hypertension, stable No acute fluid overload BPH, prostate cancer status post radiation past history DVT as per records Chronic anemia, hemoglobin on admission better than baseline likely secondary to hemoconcentration New diagnosis of DM 2, outpatient hemoglobin A1c of 6.11 October 2019 ISS BG goal [id number] DVT phylaxis. SCDs RE GI bleed Code: DNR as per daughter/POA, Ms. Barrett Gonzalez, she can be contacted at [phone]. Like to be transferred to skilled care facility tomorrow Admission and Anticipated Discharge Date Admission Date: November 20, 2019 Anticipated date of discharge: 11/25/19 Subjective 11/23/2019 The patient was seen and examined in medical floor He was admitted on 20 November with GI bleed suspected secondary to ischemic colitis, metabolic and colopathy, acute kidney injury and rash likely secondary to Bactrim As of today is very lethargic but denies any significant symptoms Has been moving his bowel without any abdominal distention, pain, nausea and or vomiting 11/24/2019 The patient was seen and examined in medical floor He has been much better today Communicating almost normally and has been eating Denies any significant pain, no more diarrhea and no more blood in the stool His rash has been improving Review of Systems Review of Systems: Remains generally weak without any acute distress Neurologic: + generalized weakness and + confusion (Pleasantly confused) Physical Exam Physical Exam: Lying in bed comfortably Constitutional: + ill appearing; no acute distress Eyes: PERRL, conjunctivae normal, anicteric sclerae ENMT: external ear and nose normal, oropharynx normal Neck: trachea midline, no thyromegaly Respiratory: normal respiratory effort; no respiratory distress Auscultation: + diminished lung sounds and + crackles (Minimal crackles at the bases) Cardiovascular: Rate/Rhythm: regular rate and regular rhythm Heart Sounds: + murmur Gastrointestinal (Abdomen): Inspection/Auscultation: abdomen normal to inspection and normal bowel sounds Percussion/Palpation: abdomen soft; abd omen nontender Musculoskeletal: No acute arthritis involving any joints Skin: Petechial rash involving the lower extremities has improved a lot Neurologic: moves all extremities Alert, awake. Pleasantly confused Lymphatic: no cervical or axillary lymphadenopathy Results & Data ([facility]) Vital Signs (Past 12 Hours) Vital Signs Temp Pulse Pulse Resp BP Pulse Ox 11/24/19 11:55 36.3 C L 69 16 113/72 98 11/24/19 07:48 64 11/24/19 07:26 36.3 C L 65 18 148/81 H 97 11/24/19 04:00 36.4 C L 69 20 133/74 98 Laboratory Results Short CBC 11/24/19 Range/Units 05:58 WBC 16.24 H (4.8-10.8) K/uL Hgb 9.8 L (14.0-18.0) g/dL Hct 31.3 L (42-52) % Plt Count 170 (130-400) K/uL BMP 11/24/19 05:58 Sodium 139 Potassium 3.3 L Chloride 108 H Carbon Dioxide 27 BUN 13 Creatinine 0.84 Glucose 105 H Calcium 7.8 L Liver Function 11/24/19 Range/Units 05:58 Total Bilirubin 0.6 (0.2-1) mg/dl AST 13 L (15-37) U/L ALT 8 L (12-78) U/L Alkaline Phosphatase 118 H (45-117) U/L Albumin 1.6 L (3.4-5.0) gm/dl Medications Administered Current Inpatient Medications Acetaminophen (Tylenol) 650 mg PO Q4H PRN PRN Reason: Pain or Fever Stop: 12/20/19 22:21 Last Admin: 11/23/19 21:13 Dose: 650 mg Documented by: Dextrose (Dextrose 50%) 25 - 50 ml IV UD PRN; Protocol PRN Reason: Hypoglycemia Protocol Stop: 12/20/19 22:21 Folic Acid (Folvite) 1 mg PO QAM JAKE Stop: 12/21/19 08:59 Last Admin: 11/24/19 08:03 Dose: 1 mg Documented by: Glucagon (Glucagen) 1 mg SQ UD PRN; Protocol PRN Reason: Hypoglycemia Protocol Stop: 12/20/19 22:21 Glucose (Dex4 Glucose) 4 - 8 tabs PO UD PRN; Protocol PRN Reason: Hypoglycemia Protocol Stop: 12/20/19 22:21 Glucose (Glucose 40%) 15 - 30 gm PO UD PRN; Protocol PRN Reason: Hypoglycemia Protocol Stop: 12/20/19 22:21 Hydromorphone HCl (Dilaudid) 0.25 mg IV Q3H PRN PRN Reason: Pain Stop: 12/05/19 01:06 Last Admin: 11/21/19 01:38 Dose: 0.25 mg Documented by: Promethazine HCl 12.5 mg/ (Sodium Chloride) 50.5 mls @ 202 mls/hr IV Q6H PRN PRN Reason: Nausea And Vomiting Stop: 12/20/19 22:21 Metronidazole (Flagyl) 500 mg in 100 mls @ 100 mls/hr IV Q8H [facility] Stop: 11/30/19 22:59 Last Infusion: 11/24/19 09:15 Dose: Infused Documented by: Pantoprazole Sodium 40 mg/ (Syringe) 10 mls @ 5 mls/min IV BID@0900,2100 [facility] Stop: 12/21/19 20:59 Last Admin: 11/24/19 08:02 Dose: 5 mls/min Documented by: Ceftriaxone Sodium 2,000 mg/ (Dextrose) 70 mls @ 140 mls/hr IV Q24H [facility]; Protocol Stop: 11/30/19 17:59 Last Infusion: 11/23/19 18:24 Dose: Infused Documented by: Potassium Phosphate 24 mmol/ (Sodium Chloride) 508 mls @ 88 mls/hr IV ONE ONE Stop: 11/24/19 17:16 Last Admin: 11/24/19 12:15 Dose: 88 mls/hr Documented by: Insulin Aspart (Novolog Flexpen) 0 units SC ACHS [facility] Stop: 12/20/19 22:21 Last Admin: 11/24/19 12:16 Dose: Not Given Documented by: Levothyroxine Sodium (Synthroid) 75 mcg PO DAILYBB JAKE Stop: 12/21/19 06:29 Last Admin: 11/24/19 06:08 Dose: 75 mcg Documented by: Miscellaneous (Carbohydrates For Hypoglycemia) 15 - 30 gm PO UD PRN PRN Reason: Hypoglycemia Protocol Stop: 12/20/19 22:21 Simvastatin (Zocor) 20 mg PO HS JAKE Stop: 12/21/19 20:59 Last Admin: 11/23/19 21:10 Dose: 20 mg Documented by: Tamsulosin HCl (Flomax) 0.4 mg PO QPM [facility] Stop: 12/21/19 20:59 Last Admin: 11/23/19 21:10 Dose: 0.4 mg Documented by: Thiamine HCl (Vitamin B-1) 100 mg PO BIDM JAKE Stop: 12/21/19 07:59 Last Admin: 11/24/19 08:03 Dose: 100 mg Documented by: Tramadol HCl (Ultram) 25 mg PO Q4H PRN PRN Reason: Pain Stop: 12/20/19 22:21
[2019-11-24] MEDS ORDERED: NSS + 20MEQ KCL 20 MEQ/1,000 ML BAG IV SCH (15:30)
[2019-11-24] MEDS: DAPTOmycin 275 MG in SYRINGE 0 ML IV SCH (16:37)
[2019-11-24] MEDS: MAGNESIUM OXIDE 400 MG TAB PO SCH (19:57)
[2019-11-24] MEDS: metroNIDAZOLE 500 MG TAB PO SCH (19:59)
[2019-11-24] MEDS: TAMSULOSIN HCL 0.4 MG CAP PO SCH (20:00)
[2019-11-24] MEDS: SIMVASTATIN 20 MG TAB PO SCH (20:01)
[2019-11-24] MEDS ORDERED: CEFDINIR 300 MG CAP PO ONE (21:00)
[2019-11-25] MEDS: LEVOTHYROXINE SODIUM 75 MCG TABLET PO SCH (05:42)
[2019-11-25] MEDS: THIAMINE HCL 100 MG TAB PO SCH (07:50)
[2019-11-25] MEDS: MAGNESIUM OXIDE 400 MG TAB PO SCH (07:50)
[2019-11-25] MEDS: metroNIDAZOLE 500 MG TAB PO SCH (07:51)
[2019-11-25] MEDS: FOLIC ACID 1 MG TAB PO SCH (07:52)
[2019-11-25] MEDS: INSULIN ASPART 100 UNITS/ML 3 ML PEN SC SCH ×2 (08:56→12:54)
[2019-11-25] MEDS ORDERED: PANTOprazole 40 MG TAB PO SCH (09:00)
[2019-11-25] MEDS ORDERED: POTASSIUM CHLORIDE 20 MEQ TABCR PO SCH (09:00)
[2019-11-25 09:04] LABS: Basophils # (auto) 0.01 K/uL (0-0.2); Basophils % (auto) 0.1 %; Hematocrit (blood only) 31.7 % (42-52); Hemoglobin 9.9 g/dL (14.0-18.0); Immature Granulocytes # (auto) 0.13 K/uL (0.00-0.02); Immature Granulocytes % (auto) 0.7 %; Lymphocytes # (auto) 1.99 K/uL (1.2-3.4); Mean Corpuscular Hemoglobin 28.4 pg (25-34); Mean Corpuscular Hgb Conc 31.2 g/dL (32-36); Mean Corpuscular Volume 91.1 fL (80-100); Mean Platelet Volume 10.5 fL (7.4-10.4); Monocytes # (auto) 1.36 K/uL (0.11-0.59); Monocytes % (auto) 7.5 %; Neutrophils # (auto) 14.59 K/uL (1.4-6.5); Neutrophils % (auto) 80.7 %; Platelet Count 193 K/uL (130-400); RDW Standard Deviation 55.4 fL (36.4-46.3); Red Blood Count 3.48 M/uL (4.7-6.1); White Blood Count 18.08 K/uL (4.8-10.8)
[2019-11-25 09:40] LABS: BUN Creatinine Ratio 15.1 (10-20); Calcium 7.8 mg/dl (8.5-10.1); Creatinine Clr Calc Pharmacy 61.4 ml/min; Est GFR (African American) 92.2; Est GFR (Non-African American) 79.5; Magnesium 1.4 mg/dl (1.8-2.4); Phosphorus 1.9 mg/dl (2.5-4.9); Potassium 4.2 mmol/L (3.5-5.1)
--- NOTE | 2019-11-25 12:06 | Hospitalist Progress Note ---
Date of Service November 25, 2019 Assessment & Plan (1) GI bleed: Possible UGI (history of stomach NHL/ulcers as per daughter)/LGI (possible ischemic colitis rule out C. difficile) source Likely secondary to ischemic colitis IV PPI for UGI bleed GI consult RE U GIB-appreciate input and recommendation and subsequently signed off Cefepime, Flagyl for possible ischemic colitis Check stool C. difficile-has been negative Appreciate surgery input and recommendation: Surgery is not indicated and is not a surgical cancer candidate Clinically improving without any significant abdominal symptoms and moving bowels without any bleeding No more GI bleed-no more diarrhea, no blood in the stool Hemoglobin remains stable at 9.8 Remains stable without any symptoms of abdominal pain and no more bleeding He will be transferred to [facility] this afternoon ESBL UTI Has been put on intravenous Dapto This will be continued until November No ultrasound-guided peripheral line was able to be placed His current peripheral line will be used as long as possible If the line is blocked then he will need to come to [facility] outpatient for a second line to be placed He will have regular blood counts sometime next week and the report will go to his PCP [facility] secondary to illness Recent UTI status post Bactrim Rx Renal function reverted to normal Metabolic encephalopathy Likely secondary to colitis, MAITE with electrolyte imbalance and possible UTI Urine culture grew Streptococcus species, alpha not enterococcus Hypokalemia, hypomagnesemia and hypophosphatemia have been corrected We will continue supplement on discharge Generalized purpuric rash involving the lower extremities Likely secondary to to Bactrim Will observe in the hospital Realized purpuric rash involving the lower extremities have improved a lot Chronic diastolic heart failure (EF 55 to 60%, TTE 2018), patient clinically dry hx CAD/CVA as per records hypertension, stable No acute fluid overload BPH, prostate cancer status post radiation past history DVT as per records Chronic anemia, hemoglobin on admission better than baseline likely secondary to hemoconcentration New diagnosis of DM 2, outpatient hemoglobin A1c of 6.11 October 2019 ISS BG goal [id number] DVT phylaxis. SCDs RE GI bleed Code: DNR as per daughter/POA, Ms. Barrett Gonzalez, she can be contacted at [phone]. Like to be transferred to [facility] this afternoon Palliative care has been in discussion with the POA about the transfer I will also discuss with her Admission and Anticipated Discharge Date Admission Date: November 20, 2019 Anticipated date of discharge: 11/25/19 Subjective 11/23/2019 The patient was seen and examined in medical floor He was admitted on 20 November with GI bleed suspected secondary to ischemic colitis, metabolic and colopathy, acute kidney injury and rash likely secondary to Bactrim As of today is very lethargic but denies any significant symptoms Has been moving his bowel without any abdominal distention, pain, nausea and or vomiting 11/24/2019 The patient was seen and examined in medical floor He has been much better today Communicating almost normally and has been eating Denies any significant pain, no more diarrhea and no more blood in the stool His rash has been improving 11/25/2019 The patient was seen and examined in medical floor He remains generally weak and lethargic but lot better compared with last few days Denies any significant symptoms except weakness Has been trying to eat as much as he can Happy to get back to [facility] today Review of Systems Review of Systems: Remains generally weak without any acute distress Neurologic: + generalized weakness and + confusion (Pleasantly confused) Physical Exam Physical Exam: Lying in bed comfortably Constitutional: + ill appearing and + thin; + not well developed, + not well nourished and no acute distress Eyes: PERRL, conjunctivae normal, anicteric sclerae ENMT: external ear and nose normal, oropharynx normal Neck: trachea midline, no thyromegaly Respiratory: normal respiratory effort; no respiratory distress Auscultation: + diminished lung sounds and + crackles (Minimal crackles at the bases); no wheezes Cardiovascular: Rate/Rhythm: regular rate and regular rhythm Heart Sounds: + murmur Gastrointestinal (Abdomen): Inspection/Auscultation: abdomen normal to inspection and normal bowel sounds Percussion/Palpation: abdomen soft; abdomen nontender Musculoskeletal: No acute arthritis in any joints Skin: + rash (Bilateral lower extremity petechial rash has improved a lot) Neurologic: moves all extremities Remains very weak and lethargic Lymphatic: no cervical or axillary lymphadenopathy Results & Data ([facility]) Vital Signs (Past 12 Hours) Vital Signs Temp Pulse Pulse Resp BP Pulse Ox 11/25/19 07:19 36.7 C 83 16 146/75 H 96 11/25/19 04:00 36.3 C L 76 20 121/60 95 11/25/19 00:54 75 Laboratory Results Short CBC 11/25/19 Range/Units 08:43 WBC 18.08 H (4.8-10.8) K/uL Hgb 9.9 L (14.0-18.0) g/dL Hct 31.7 L (42-52) % Plt Count 193 (130-400) K/uL BMP 11/25/19 08:43 Sodium 140 Potassium 4.2 D Chloride 109 H Carbon Dioxide 26 BUN 12 Creatinine 0.82 Glucose 109 H Calcium 7.8 L Medications Administered Current Inpatient Medications Acetaminophen (Tylenol) 650 mg PO Q4H PRN PRN Reason: Pain or Fever Stop: 12/20/19 22:21 Last Admin: 11/23/19 21:13 Dose: 650 mg Documented by: Dextrose (Dextrose 50%) 25 - 50 ml IV UD PRN; Protocol PRN Reason: Hypoglycemia Protocol Stop: 12/20/19 22:21 Folic Acid (Folvite) 1 mg PO QAM JAKE Stop: 12/21/19 08:59 Last Admin: 11/25/19 07:52 Dose: 1 mg Documented by: Glucagon (Glucagen) 1 mg SQ UD PRN; Protocol PRN Reason: Hypoglycemia Protocol Stop: 12/20/19 22:21 Glucose (Dex4 Glucose) 4 - 8 tabs PO UD PRN; Protocol PRN Reason: Hypoglycemia Protocol Stop: 12/20/19 22:21 Glucose (Glucose 40%) 15 - 30 gm PO UD PRN; Protocol PRN Reason: Hypoglycemia Protocol Stop: 12/20/19 22:21 Hydromorphone HCl (Dilaudid) 0.25 mg IV Q3H PRN PRN Reason: Pain Stop: 12/05/19 01:06 Last Admin: 11/21/19 01:38 Dose: 0.25 mg Documented by: Promethazine HCl 12.5 mg/ (Sodium Chloride) 50.5 mls @ 202 mls/hr IV Q6H PRN PRN Reason: Nausea And Vomiting Stop: 12/20/19 22:21 Daptomycin 275 mg/ Syringe 5.5 mls @ 2.75 mls/min IV Q24H JAKE; Protocol Stop: 12/04/19 15:59 Last Admin: 11/24/19 16:37 Dose: 2.75 mls/min Documented by: Insulin Aspart (Novolog Flexpen) 0 units SC ACHS JAKE Stop: 12/20/19 22:21 Last Admin: 11/25/19 08:56 Dose: Not Given Documented by: Levothyroxine Sodium (Synthroid) 75 mcg PO DAILYBB JAKE Stop: 12/21/19 06:29 Last Admin: 11/25/19 05:42 Dose: 75 mcg Documented by: Magnesium Oxide (Mag-Ox) 400 mg PO BID JAKE Stop: 12/24/19 20:59 Last Admin: 11/25/19 07:50 Dose: 400 mg Documented by: Metronidazole (Flagyl) 500 mg PO BID JAKE Stop: 12/04/19 20:59 Last Admin: 11/25/19 07:51 Dose: 500 mg Documented by: Miscellaneous (Carbohydrates For Hypoglycemia) 15 - 30 gm PO UD PRN PRN Reason: Hypoglycemia Protocol Stop: 12/20/19 22:21 Pantoprazole Sodium (Protonix) 40 mg PO QAM JAKE Stop: 12/25/19 08:59 Last Admin: 11/25/19 07:51 Dose: 40 mg Documented by: Potassium Chloride (Klor-Con M20) 20 meq PO QAM JAKE Stop: 12/25/19 08:59 Last Admin: 11/25/19 07:51 Dose: 20 meq Documented by: Simvastatin (Zocor) 20 mg PO HS JAKE Stop: 12/21/19 20:59 Last Admin: 11/24/19 20:01 Dose: 20 mg Documented by: Tamsulosin HCl (Flomax) 0.4 mg PO QPM JAKE Stop: 12/21/19 20:59 Last Admin: 11/24/19 20:00 Dose: 0.4 mg Documented by: Thiamine HCl (Vitamin B-1) 100 mg PO BIDM JAKE Stop: 12/21/19 07:59 Last Admin: 11/25/19 07:50 Dose: 100 mg Documented by: Tramadol HCl (Ultram) 25 mg PO Q4H PRN PRN Reason: Pain Stop: 12/20/19 22:21
[2019-11-25] MEDS: DAPTOmycin 275 MG in SYRINGE 0 ML IV SCH (12:42)
--- NOTE | 2019-11-26 12:21 | Discharge Summary ---
Date of Service November 26, 2019 Admission HPI Per Admitting Provider History obtained from family and records. Unable to obtain history from patient secondary to obtunded state. 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 Recent confinement August 2018 for fall, rhabdomyolysis. Patient transitioned to [facility]. 2 weeks ago patient started on Bactrim and Macrobid for polymicrobial UTI (Proteus sensitive, Aerococcus resistant) after fever at the long term. 2 days history of hematemesis, melanotic, rectal bleeding symptoms. Decreased mentation as per report. No reported complaints of abdominal pain. EMS brought patient to ER. IV PPI started for UGI bleed. Medical History as above 2014 colonoscopy showed colonic polyps, diverticulosis, internal hemorrhoids Surgical History : Urologic procedures Family History : Heart disease, stroke Personal/Social history : Past tobacco abuse, no recent EtOH intake, long term resident, retired salesman Admission Exam Per Admitting Provider Physical Exam: GENERAL: Obtunded, nonverbal, no respiratory distress SKIN: Pallor , warm HEENT: Pale palpebral conjunctivae, no ptosis, dry buccal mucosa NECK : Supple, no tenderness CHEST : Decreased breath sounds , no tenderness HEART : RRR, no obvious murmurs ABDOMEN: Some distention, nonspecific tenderness on light palpation EXTREMITIES : Petechial rash both lower extremities and hands, no LE swelling/tenderness, no other conspicuous deformities noted NEUROLOGIC : Obtunded, nonverbal, gait and stance not assessed Principal Diagnosis GI bleed likely secondary to possible ischemic colitis-resolved, ESBL UTI on intravenous daptomycin, generalized purpuric rash likely secondary to Bactrim- resolving, controlled chronic diastolic heart failure, type 2 diabetes Discharge Exam Constitutional + ill appearing and + thin; + not well developed, + not well nourished and no acute distress Eyes PERRL, conjunctivae normal, anicteric sclerae ENMT external ear and nose normal, oropharynx normal Neck trachea midline, no thyromegaly Respiratory normal respiratory effort; no respiratory distress Auscultation: + diminished lung sounds and + crackles (Minimal crackles at the bases); no wheezes Cardiovascular Rate/Rhythm: regular rate and regular rhythm Heart Sounds: + murmur Gastrointestinal (Abdomen) Inspection/Auscultation: abdomen normal to inspection and normal bowel sounds Percussion/Palpation: abdomen soft; abdomen nontender Skin + rash (Bilateral lower extremity petechial rash has improved a lot) Neurologic moves all extremities Lymphatic no cervical or axillary lymphadenopathy Discharge Data Allergies Allergy/AdvReac Type Severity Reaction Status Date / Time Penicillins Allergy Intermediate Hives Verified 11/20/19 18:39 sulfamethoxazole Allergy Mild poss Verified 11/21/19 04:02 [From Bactrim] vasculitic rash trimethoprim [From Bactrim] Allergy Mild poss Verified 11/21/19 04:02 vasculitic rash Consultations 11/20/19 20:19 ED Decision to Admit Stat 11/20/19 22:22 Consult Gastroenterology Routine 11/20/19 22:50 Consult General Surgery Routine 11/21/19 12:30 Consult Palliative Care Routine 11/22/19 11:08 Consult Dermatology Routine Ordered Studies 11/20/19 21:04 CT abd pelvis wo con Urgent CT head/brain wo con Urgent Hospital Course (1) GI bleed: Possible UGI (history of stomach NHL/ulcers as per daughter)/LGI (possible ischemic colitis rule out C. difficile) source Likely secondary to ischemic colitis IV PPI for UGI bleed GI consult RE U GIB-appreciate input and recommendation and subsequently signed off Cefepime, Flagyl for possible ischemic colitis Check stool C. difficile-has been negative Appreciate surgery input and recommendation: Surgery is not indicated and is not a surgical cancer candidate Clinically improving without any significant abdominal symptoms and moving bowels without any bleeding No more GI bleed-no more diarrhea, no blood in the stool Hemoglobin remains stable at 9.8 Remains stable without any symptoms of abdominal pain and no more bleeding He will be transferred to [facility] this afternoon ESBL UTI Has been put on intravenous Dapto This will be continued until November No ultrasound-guided peripheral line was able to be placed His current peripheral line will be used as long as possible If the line is blocked then he will need to come to [facility] outpatient for a second line to be placed He will have regular blood counts sometime next week and the report will go to his PCP [facility] secondary to illness Recent UTI status post Bactrim Rx Renal function reverted to normal Metabolic encephalopathy Likely secondary to colitis, MAITE with electrolyte imbalance and possible UTI Urine culture grew Streptococcus species, alpha not enterococcus Hypokalemia, hypomagnesemia and hypophosphatemia have been corrected We will continue supplement on discharge Generalized purpuric rash involving the lower extremities Likely secondary to to Bactrim Will observe in the hospital Realized purpuric rash involving the lower extremities have improved a lot Chronic diastolic heart failure (EF 55 to 60%, TTE 2018), patient clinically dry hx CAD/CVA as per records hypertension, stable No acute fluid overload BPH, prostate cancer status post radiation past history DVT as per records Chronic anemia, hemoglobin on admission better than baseline likely secondary to hemoconcentration New diagnosis of DM 2, outpatient hemoglobin A1c of 6.11 October 2019 ISS BG goal [id number] DVT phylaxis. SCDs RE GI bleed Code: DNR as per daughter/POA, Ms. Barrett Gonzalez, she can be contacted at [phone]. Like to be transferred to [facility] this afternoon Palliative care has been in discussion with the POA about the transfer I will also discuss with her Total Time Total Time Spent Total Time Spent (In Minutes): 40 minutes Total Time Includes: Examination of the Patient, Discharge Planning, Medication Reconciliation and Communication With Other Providers Discharge Plan Discharge Items Patient Disposition: [facility] Reason For Visit: UGIB Discharge Diagnosis: GI bleed likely secondary to possible ischemic colitis-resolved, ESBL UTI on intravenous daptomycin, generalized purpuric rash likely secondary to Bactrim- resolving, controlled chronic diastolic heart failure, type 2 diabetes Condition on Discharge: Fair Activity: Per Instructions section Activity Comment: Mostly bedbound. Needs assistance with ADL S Non-emergency contact: Primary Care Provider Call non-emergency contact if: you have any medication questions Follow-up/Referrals: Laine Corado at [place] [Primary Care Provider] - Diet: Carb Consistent or DM2 and Heart Healthy Diet Comment: Minced and moist Ambulatory Orders: Complete Blood Count with Diff (Routine) Timeframe: 20191129 Location: Determined by Patient Ordered By: Manabend Sridhar Creatine Kinase (Routine) Timeframe: 20191129 Location: Determined by Patient Ordered By: Manabendra Sridhar Comprehensive Metabolic Panel (Routine) Timeframe: 20191129 Location: Determined by Patient Ordered By: Hayde Waller Erythrocyte Sedimentation Rate (Routine) Timeframe: 20191129 Location: Determined by Patient Ordered By: Hayde Ervin Attending Provider Instructions: Please take precaution to avoid falls. Please check CBC, comprehensive metabolic panel, CK level and ESR in about 5 to 7 days and report to the covering doctor Pending Studies at Discharge: No Stand-Alone Forms: My [facility] Skilled Items Patient informed of condition?: Yes DNR: Yes Discharge Level of Care: Other Communicable Disease: No Discharge Prognosis: Stable Lines: Peripheral IV Urinary Catheter: Yes Medications and DC Order Prescriptions: New metronidazole 500 mg Tablet 500 mg PO BID 5 Days Qty: 10 RF: 0 potassium chloride [Klor-Con M20] 20 mEq Tablet,Er Particles/Crystals 20 meq PO QAM 30 Days Qty: 30 RF: 0 magnesium oxide 400 mg (241.3 mg magnesium) Tablet 400 mg PO BID 30 Days Qty: 60 RF: 0 daptomycin 350 mg recon soln 275 mg IV DAILY Qty: 8 RF: 0 Lactinex 1 million cell tablet,chewable 1 tab PO BID Qty: 30 RF: 0 Continued acetaminophen [Acetaminophen Extra Strength] 500 mg tablet 500 mg PO Q4H PRN (Reason: Pain) Qty: 30 RF: 0 levothyroxine 75 mcg tablet 75 mcg PO DAILYBB RF: 0 tamsulosin 0.4 mg capsule 0.4 mg PO QPM RF: 0 simvastatin 20 mg tablet 20 mg PO HS RF: 0 folic acid 1 mg Tablet 1 mg PO QAM RF: 0 cholecalciferol (vitamin D3) [Vitamin D3] 1,000 unit Tablet 1,000 units PO QAM RF: 0 famotidine 20 mg Tablet 20 mg PO HS RF: 0 loratadine [Claritin] 10 mg Tablet 10 mg PO HS RF: 0 Boost 0.04 gram- 1 kcal/mL Liquid 1 ea PO BIDM RF: 0 thiamine HCl (vitamin B1) [Vitamin B-1] 100 mg tablet 100 mg PO BIDM RF: 0 ferrous sulfate 325 mg (65 mg iron) tablet,delayed release (DR/EC) 325 mg PO BID17 RF: 0 polyvinyl alcohol [Artificial Tears (polyvin alc)] 1.4 % Drops 2 drp OPB QID RF: 0 Discharge Orders: Discharge Order (Routine); Ordered 11/25/19 Ordered By: Hayde Waller Admission Data Admit Date/Time: 11/20/19 21:06 Attending Provider: Hayde Waller Admit Provider: Ayush Isidro Primary Care Provider: Laine Coardo [place] Other Providers: Ayush Isidro ; Thanh Naik ; Shaggy Oakes ; Mary Ingram ; Jamshid Cardenas Other Interventions: Discharge Summary Assessment (RN) Last Done: 11/25/19 12:03 DC Date/Time DO NOT enter until pt leaves facility: 11/25/19 14:40
== END 2019-11-25 14:40 | DRG 393 ==
LOC: ED 18:03 → 2W 21:06 → SUATTDRO 21:06 → 2W 21:30